=== PATIENT | male | born 1950 | race Caucasian/White ===

== ENCOUNTER 2016-07-28 15:44 | Emergency (ER) | payer MEDICARE, BC ==
--- NOTE | 2016-07-28 16:09 | ED ---
Abdominal Pain HPI - General Chief Complaint: Abdominal Pain Stated Complaint: LRQ PAIN, CONSTIPATION, RECTAL PAIN Time Seen by Provider: 07/28/16 16:02 Source: patient, RN notes reviewed Mode of arrival: EMS Limitations: no limitations - History of Present Illness Initial Comments: 66-year-old male presents to the emergency department with a chief complaint of constipation. Patient states he has not had a good bowel movement about 3 days now. Patient states he feels as if he has to copious unable to get out. Patient states that his last bowel movement was about 3 days ago but he has been feeling off and bowel movements the last few weeks. Patient does admit to a history of constipation and says he hasn't needed enemas before. Patient tried enema, and only had a small bowel movement. Patient states that he is having some lower abdominal pain with this as well. Patient denies any fever chills nausea vomiting. Patient denies any changes in urination. Patient states that he was concerned and he was having a lot of pain when he tried to the bowel movements without that he should be evaluated.Patient denies any recent fever, chills, shortness of breath, chest pain, back pain, nausea vomiting, numbness or tingling, dysuria or hematuria, diarrhea, headaches or visual changes, or any other current symptoms. - Related Data Home Medications Medication Instructions Recorded Confirmed Aspirin EC [Ecotrin] 81 mg PO DAILY 01/10/15 07/28/16 Cholecalciferol [Vitamin D3] 1,000 unit PO BID 01/10/15 07/28/16 Folic Acid 1 - 2 mg PO DAILY 01/10/15 07/28/16 Magnesium 250 mg PO DAILY 01/10/15 07/28/16 ALPRAZolam [Xanax] 0.25 mg PO DAILY PRN 07/12/15 07/28/16 Carvedilol [Coreg] 12.5 mg PO BID 07/12/15 07/28/16 Sildenafil Citrate [Viagra] 50 mg PO ONCE PRN 07/12/15 07/28/16 Esomeprazole Magnesium [NexIUM] 40 mg PO BID 08/20/15 07/28/16 Ranitidine HCl [Zantac] 150 mg PO BID 11/19/15 07/28/16 Krill/Om-3/Dha/Epa/Phospho/Ast 1 cap PO DAILY 11/22/15 07/28/16 [[place]-3 Krill Oil 300 mg Sfgl] Atorvastatin [Lipitor] 10 mg PO DAILY 07/28/16 07/28/16 Fexofenadine HCl [Beronica Allergy] 180 mg PO DAILY 07/28/16 07/28/16 Fluticasone Nasal [place] [Flonase 2 spr EA NOSTRIL DAILY PRN 07/28/16 07/28/16 Nasal [place]] Montelukast [Singulair] 10 mg PO HS 07/28/16 07/28/16 Vitamin B Complex 1 cap PO DAILY 07/28/16 07/28/16 Zinc 50 mg PO DAILY 07/28/16 07/28/16 Allergies Allergy/AdvReac Type Severity Reaction Status Date / Time chloroxine [From Capitrol] Allergy Itching Verified 07/28/16 16:29 Sulfa (Sulfonamide Allergy Rash/Hives Verified 07/28/16 16:29 Antibiotics) tamsulosin HCl [From Flomax] AdvReac low b/p Verified 07/28/16 16:29 Review of Systems ROS Statement: Those systems with pertinent positive or pertinent negative responses have been documented in the HPI. ROS Other: All systems not noted in ROS Statement are negative. Past Medical History Past Medical History: Coronary Artery Disease (CAD), GERD/Reflux, Hyperlipidemia , Hypertension, Myocardial Infarction (MD) Additional Past Medical History / Comment(s): having difficulty swallowing meat and recent intermittent burning sensation to tongue with recent tx of yeast infection, narrowing rt nares,diverticulitis Last Myocardial Infarction Date:: 2012 History of Any Multi-Drug Resistant Organisms: None Reported Past Surgical History: AICD, Heart Catheterization, Heart Catheterization With Stent, Orthopedic Surgery, Tonsillectomy Additional Past Surgical History / Comment(s): heart stents x2,EGD Past Anesthesia/Blood Transfusion Reactions: No Reported Reaction Date of Last Stent Placement:: 2012 Type of Cardiac Device: AICD Device Placement Date:: 2013 Past Psychological History: Anxiety Smoking Status: Former smoker Past Alcohol Use History: None Reported Additional Past Alcohol Use History / Comment(s): quit smoking approx Past Drug Use History: None Reported - Past Family History Mother Family Medical History: Congestive Heart Failure (CHF) Father Family Medical History: Cancer Additional Family Medical History / Comment(s): prostate Sister(s) Family Medical History: Cancer, CVA/TIA General Exam - General Exam Comments Initial Comments: General: The patient is awake and alert, in no distress, and does not appear acutely ill. Eye: Pupils are equal, round and reactive to light, extra-ocular movements are intact; there is normal conjunctiva bilaterally. No signs of icterus. Ears, nose, mouth and throat: There are moist mucous membranes. Neck: The neck is supple, there is no tenderness. Cardiovascular: There is a regular rate and rhythm. No murmur, rub or gallop is appreciated. Respiratory: Lungs are clear to auscultation, respirations are non-labored, breath sounds are equal. No wheezes, stridor, rales, or rhonchi. Gastrointestinal: Soft, non-distended, non-tender abdomen without masses or organomegaly noted. There is no rebound or guarding present. No CVA tenderness. Bowel sounds are unremarkable. Back: There is no tenderness to palpation in the midline. There is no obvious deformity. No rashes noted. Musculoskeletal: Normal ROM, no tenderness, There is no pedal edema. There is no calf tenderness or swelling. Sensation intact. Pulses equal bilaterally 2+. Neurological: CN II-XII intact, There are no obvious motor or sensory deficits. Coordination appears grossly intact. Speech is normal. Skin: Skin is warm and dry and no rashes or lesions are noted. Psychiatric: Cooperative, appropriate mood & affect, normal judgment. Limitations: no limitations Rectal exam: Present: normal inspection Course Vital Signs 07/28/16 15:46 Temperature 98.0 F Pulse Rate 79 Respiratory 20 Rate Blood Pressure 122/77 O2 Sat by Pulse 100 Oximetry Medical Decision Making - Medical Decision Making 66-year-old male presents emergency Department chief complaint of constipation. At this time x-rays reviewed that showed increased stool in the rectum. Patient went enema did have good results and states that he is back to normal he feels great. This time we discussed follow-up and return parameters. Patient stated he understood and all questions were answered. He'll be discharged. - Radiology Data Radiology results: report reviewed, image reviewed Disposition Clinical Impression: Constipation Disposition: HOME SELF-CARE Condition: Stable Instructions: Constipation (ED) Additional Instructions: Please use medication as discussed. Please follow up with family doctor if symptoms have not improved over the next two days. Please return to the emergency room if your symptoms increase or worsen or for any other concerns. Referrals: Vega Davies DO [Primary Care Provider] - 1-2 days Time of Disposition: 17:20
--- NOTE | 2016-07-28 16:21 | XR ---
EXAMINATION TYPE: XR abdomen 2V DATE OF EXAM: 07/28/2016 4:16 PM CLINICAL HISTORY: Lower abdominal and rectal pain. History of diverticulitis TECHNIQUE: Supine and upright views of the abdomen are obtained COMPARISON: Abdominal x-ray November 22, 2015 FINDINGS: Scattered gas is seen in non-distended small bowel loops. Gas and fecal material is seen in non-distended colon. The amount of fecal material is slightly prominent in the rectum. No pneumope ritoneum or suspicious calcification is seen. There is scoliotic curvature in the lower lumbar spine redemonstrated. Is partial visualization of pacemaker/defibrillator lead. There is coronary stent not ed in the left circumflex distribution. IMPRESSION: Overall nonspecific likely nonobstructive bowel gas pattern.
[2016-07-28] MEDS ORDERED: MAGNESIUM CITRATE 296 ML BOTTLE PO ONE (17:20)
[2016-07-28 17:57] VITALS: BP 126/72; PULSE 80; RESP 18; TEMP 97.4
== END 2016-07-28 18:00 | disposition home or self-care (01) ==
LOC: EC 15:44
DX: K59.00 Constipation, unspecified (principal); I10 Essential (primary) hypertension; F41.9 Anxiety disorder, unspecified; K21.9 Gastro-esophageal reflux disease without esophagitis; I25.2 Old myocardial infarction; I25.10 Atherosclerotic heart disease of native coronary artery without angina pectoris; E78.5 Hyperlipidemia, unspecified; Z95.810 Presence of automatic (implantable) cardiac defibrillator; Z95.5 Presence of coronary angioplasty implant and graft; Z87.891 Personal history of nicotine dependence; Z79.82 Long term (current) use of aspirin; Z79.899 Other long term (current) drug therapy; Z79.51 Long term (current) use of inhaled steroids; Z88.8 Allergy status to other drugs, medicaments and biological substances; Z88.2 Allergy status to sulfonamides
CPT/HCPCS: 74020; 99284

== ENCOUNTER 2016-10-26 10:09 | Day surgery (SDC) | payer MEDICARE, BC ==
[2016-10-23 16:05] VITALS: BMI 22.5
[~2016-10-26 10:09] MED LIST: LACTATED RINGERS 1,000 ML IV SCH
[2016-10-26 11:37] VITALS: TEMP 98.1
[2016-10-26] MEDS ORDERED: LIDOCAINE 1% 20 ML VIAL (10MG/ML) FOR IV START INTRADERMA ONE (11:40)
[2016-10-26] MEDS ORDERED: LIDOCAINE 1% INJ 10MG/ML (20 ML MDV) ONE (12:35)
[2016-10-26] MEDS ORDERED: PROPOFOL 10 MG/ML 20 ML VIAL IV ONE ×2 (12:35)
[2016-10-26 13:21] VITALS: RESP 16
--- NOTE | 2016-10-26 13:28 | P.PCN ---
Date of Procedure: 10/26/16 Procedure(s) Performed: Procedures: 1. Esophagogastroduodenoscopy and biopsy. 2. Total colonoscopy. Preoperative diagnosis: Chronic reflux symptoms and change in bowel habits. Postoperative diagnosis: 1. Small sliding hiatal hernia and LA grade 2 distal esophagitis. 2. Mild gastritis. 3. Colonoscopy reveals diverticulosis with no evidence of acute diverticulitis, strictures, polyps or cancer. Preparation: HalfLytely prep. Sedation: Was provided by anesthesia. Brief clinical history: The patient is 66-year-old male who I have evaluated in the office last month for various GI complaints. He reported feeling of incomplete evacuation for 3-4 months and had complaints of excessive gas especially after dinner. He gave history of hiatal hernia and chronic reflux for which he is on Zantac daily and Nexium periodically. He also gave history of burning in his tongue since 2014 after he had a reaction to sulfa drugs, now improved, but recurs when he is on antibiotics. His last upper endoscopy and colonoscopy was around 5 years ago. This evaluation is to assess for complicated reflux disease, neoplasia or other pathology. Procedure: With the patient on his left lateral decubitus position and after informed consent and adequate sedation, I passed the Olympus-GIF 160 video upper endoscope through the cricopharyngeus down the esophagus. GE junction was around 40 cm from the incisors and there was a small sliding hiatal hernia and couple short linear erosions terminating at the level of the GE junction but no strictures or Van's esophagus. No ulcers. The endoscope was then passed into the stomach which was insufflated with air and inspected in detail including the retroflex view in the cardia. There was some mottling and erythema in the antrum but no ulcers or erosions. Pyloric channel, duodenal bulb, post bulbar area and descending duodenum appeared essentially within normal limits. Because of his symptoms, I obtained multiple biopsies from the duodenum antrum and esophagus before the endoscope was withdrawn and then I proceeded with the colonoscopy. Perianal area did not show any fissures or fistulas. There were no masses felt on digital rectal examination. The Olympus CFQ 160L video colonoscope was then inserted in the rectum in the usual fashion and advanced to the cecum. There were multiple diverticular orifices seen scattered along the length of the bowel , mostly small in size, with no evidence of acute diverticulitis or strictures. No polyps, tumors or other pathology noted. I retroflexed endoscope in the rectum before the endoscope was withdrawn. The patient tolerated the procedure well. Plan: The patient was reassured. Will await biopsy results. Discussed dietary measures. Further plans will be made based on his course and biopsy results. I will keep you updated on his progress.
[2016-10-26 13:46] VITALS: BP 122/71; PULSE 81
== END 2016-10-26 14:30 | disposition home or self-care (01) ==
LOC: ORWHC2ENDO 10:09
DX: K57.30 Diverticulosis of large intestine without perforation or abscess without bleeding (principal); K21.0 Gastro-esophageal reflux disease with esophagitis; K29.50 Unspecified chronic gastritis without bleeding; K28.9 Gastrojejunal ulcer, unspecified as acute or chronic, without hemorrhage or perforation; K44.9 Diaphragmatic hernia without obstruction or gangrene; I25.10 Atherosclerotic heart disease of native coronary artery without angina pectoris; I10 Essential (primary) hypertension; E78.5 Hyperlipidemia, unspecified; Z95.5 Presence of coronary angioplasty implant and graft; Z95.810 Presence of automatic (implantable) cardiac defibrillator; Z88.2 Allergy status to sulfonamides; Z88.8 Allergy status to other drugs, medicaments and biological substances; I25.2 Old myocardial infarction; Z79.899 Other long term (current) drug therapy
CPT/HCPCS: 88305; 88342; 45378; 43239; J2001; J2704

== ENCOUNTER → 2016-11-23 | Outpatient (CLI) | payer MEDICARE, BC ==
[2016-11-23 17:20] LABS: Rheumatoid Factor, Qnt <9 IU/mL (<12)
[2016-11-23 17:21] LABS: Uric Acid 4.4 mg/dL (3.5-8.5)
== END | disposition home or self-care (01) ==
LOC: LABWHC1 16:24
PROVIDERS: ATTEND Internal Medicine Critical Care Medicine
DX: M19.90 Unspecified osteoarthritis, unspecified site (principal); M10.9 Gout, unspecified; R10.9 Unspecified abdominal pain; Z12.5 Encounter for screening for malignant neoplasm of prostate
CPT/HCPCS: 85652; 84550; 86140; 86431; 86038; 36415; G0103

== ENCOUNTER → 2017-03-15 | Outpatient (CLI) | payer MEDICARE, BC ==
[2017-03-15 19:22] LABS: Cyclic Citrull Pep IgG Unit <0.5 U/mL; Cyclic Citrullinated Pep IgG NEGATIVE (NEGATIVE); RNP AB Interpretation NEGATIVE (NEGATIVE)
== END | disposition home or self-care (01) ==
LOC: LABWHC1 13:15
PROVIDERS: ATTEND Psychiatry & Neurology Pain Medicine
DX: M79.1 Myalgia (principal)
CPT/HCPCS: 36415; 85652; 86140; 86200; 86235

== ENCOUNTER → 2017-03-23 | Outpatient (CLI) | payer MEDICARE, BC ==
[2017-03-23 09:01] LABS: Blood Urea Nitrogen 12 mg/dL (9-20); Non-African American GFR(MDRD) >60 (>60 ml/min/1.73 sqM)
--- NOTE | 2017-03-23 10:24 | CT ---
EXAMINATION TYPE: CT brain wo/w con DATE OF EXAM: 03/23/2017 COMPARISON: NONE HISTORY: Weakness and blurred vision CT DLP: 5.4 mGycm Automated exposure control for dose reduction was used. CONTRAST: CT scan of the head is performed without and with IV Contrast, patient injected with 100 mL of Omnipa que 300. FINDINGS: Noncontrast images show no acute intracranial hemorrhage. There is no abnormal enhancing mass or midl ine shift identified. Patchy bilateral basal ganglia calcifications are seen. Some low-attenuation pe riventricular white matter is felt present. Dominant left vertebral artery is incidentally noted. The re is ventricular and sulcal prominence consistent with mild to moderate diffuse age-related cerebral atrophy. The globes are intact and the visualized sinuses are clear. IMPRESSION: Mild to moderate diffuse cerebral atrophy and suspected mild chronic small vessel ischemic change wit hout abnormal enhancing mass identified.
--- NOTE | 2017-03-23 10:55 | CT ---
EXAMINATION TYPE: CT lumbar spine wo con DATE OF EXAM: 03/23/2017 10:06 AM COMPARISON: CT abdomen and pelvis November 25, 2011. HISTORY: Lumbago per order. Low back pain with feet leg pain and weakness. CT DLP: 387.4 mGycm Automated exposure control for dose reduction was used. Findings: There is redemonstration 5 lumbar type vertebra. There is redemonstration of levoconvex sco liosis centered at lumbosacral junction. Spine is straightened on sagittal images. There is advanced disc space narrowing with endplate sclerosis and moderate anterior spurring at L5-S1 level redemonstr ated. Vertebral body heights and disc space heights above this level are within normal limits with ex ception of moderate disc space narrowing at T12-L1 level. There is mild to minimal multilevel anterio r and lateral spurring seen. Posterior disc herniation L5-S1 level is present on sagittal images. Axial images show T12-L1, L1-L2, L2-L3, and L3-L4 levels to appear within normal limits. Axial images at the L4-L5 level show broad-based left lateral/foraminal disc protrusion on axial imag e 52. There is mild facet degenerative changes seen bilaterally with ligamentum flavum hypertrophy mi ldly effacing the posterior lateral thecal sac. Right-sided neural foramen is patent. There is mild l eft-sided neural foraminal narrowing seen along anterior inferior aspect. Axial images at L5-S1 level show advanced disc space narrowing with posterior left paracentral spur d isc complex minimally effacing anterior thecal sac on axial image 61. Spur disc complex causes advanc ed right-sided neural foraminal narrowing and moderate left-sided neural foraminal narrowing with enc roachment on right L5 nerve likely present on sagittal images. Left L5 nerve is patent seen best on c oronal image 31. There is mild calcified plaque of aorta extending into pelvic branch vessels. IMPRESSION: Levoconvex scoliosis centered at lumbosacral junction. Advanced degenerative changes L5-S 1 level are seen. There is marginal spurring effacing right L5 nerve at this level. Further details a re noted as discussed above.
== END | disposition home or self-care (01) ==
LOC: RADCTMAIN 08:05
PROVIDERS: ATTEND Internal Medicine Critical Care Medicine
DX: I67.82 Cerebral ischemia (principal); G31.9 Degenerative disease of nervous system, unspecified
CPT/HCPCS: 82565; 84520; 72131; 70470; 36415; Q9967

== ENCOUNTER → 2017-04-24 | Outpatient (CLI) | payer MEDICARE, BC ==
--- NOTE | 2017-04-24 11:37 | US ---
EXAMINATION TYPE: US abdomen complete DATE OF EXAM: 04/24/2017 COMPARISON: CT 2011; US 2011 CLINICAL HISTORY: K30 Dyspepsia. HX of GERD; sinus drainage; allergies; right lateral abd pain interm ittently EXAM MEASUREMENTS: Liver Length: 13.7 cm Gallbladder Wall: 0.2 cm CBD: 0.5 cm Spleen: 12.4 cm Right Kidney: 10.2 x 5.4 x 4.3 cm Left Kidney: 9.0 x 4.3 x 4.0 cm Pancreas: wnl Liver: No evidence of focal mass. Left lobe somewhat diminutive relative to right lobe. Gallbladder: wnl Evidence for sonographic Navas's sign: No CBD: wnl Spleen: wnl Right Kidney: upper pole parallel vessel wall calcification is noted; small calcification imaged at lower pole = 0.2 x 0.2 x 0.2cm; multiple midpole small microcalcifications Left Kidney: mid sinus punctate hyperechoic foci Upper IVC: wnl Abd Aorta: wnl IMPRESSION: 1. Findings are suggestive of tiny bilateral renal calculi with no evidence of obstruction. Consider CT scan follow-up.
== END | disposition home or self-care (01) ==
LOC: RADUSWWP 10:32
DX: K30 Functional dyspepsia (principal)
CPT/HCPCS: 76700

== ENCOUNTER 2017-12-01 20:28 | Emergency (ER) | payer MEDICARE, BC ==
[2017-12-01] MEDS ORDERED: SODIUM CHLORIDE 0.9% 1,000 ML IV STA (20:47)
[2017-12-01] MEDS ORDERED: RX INFO: IV CONTRAST WAS GIVEN 1 EACH MISC MISCELLANE PRN (20:47)
--- NOTE | 2017-12-01 20:51 | ED ---
Abdominal Pain HPI - General Chief Complaint: Abdominal Pain Stated Complaint: Abd pain Time Seen by Provider: 12/01/17 20:39 Source: patient, RN notes reviewed Mode of arrival: ambulatory Limitations: no limitations - History of Present Illness Initial Comments: This is a 67-year-old male who presents to the emergency department with chief complaint of abdominal pain. Patient states that he developed acute onset of abdominal pain last night at about midnight. He describes the pain as throbbing and intermittent and that it is made worse with sitting and better with standing up. He states that at first the abdominal pain was generalized but is now localized to the right lower quadrant with radiation to his low back. He denies fevers but admits to associated chills and nausea. Denies vomiting, diarrhea or constipation. He states his last bowel movement was this morning and it was normal. Denies blood in his urine or stool. Denies chest pain or shortness of breath. - Related Data Home Medications Medication Instructions Recorded Confirmed Aspirin EC [Ecotrin] 81 mg PO DAILY 01/10/15 07/08/17 Cholecalciferol [Vitamin D3] 2,000 unit PO DAILY 01/10/15 07/08/17 Folic Acid 1 - 2 mg PO DAILY 01/10/15 07/08/17 Magnesium 250 mg PO DAILY 01/10/15 07/08/17 ALPRAZolam [Xanax] 0.25 mg PO DAILY PRN 07/12/15 07/08/17 Carvedilol [Coreg] 12.5 mg PO BID 07/12/15 07/08/17 Sildenafil Citrate [Viagra] 50 mg PO DAILY PRN 07/12/15 07/08/17 Esomeprazole Magnesium [NexIUM] 40 mg PO BID PRN 08/20/15 07/08/17 Ranitidine HCl [Zantac] 150 mg PO BID PRN 11/19/15 07/08/17 Krill/Om-3/Dha/Epa/Phospho/Ast 1 cap PO DAILY 11/22/15 07/08/17 [[place]-3 Krill Oil 300 mg Sfgl] Fexofenadine HCl [Beronica Allergy] 180 mg PO DAILY 07/28/16 07/08/17 Fluticasone Nasal [place] [Flonase 2 spr EA NOSTRIL DAILY PRN 07/28/16 07/08/17 Nasal [place]] Vitamin B Complex 1 cap PO DAILY 07/28/16 07/08/17 Zinc 50 mg PO DAILY 07/28/16 07/08/17 Atorvastatin [Lipitor] 80 mg PO HS 10/23/16 07/08/17 L.acidoph,Paracasei, B.lactis 1 cap PO DAILY 10/23/16 07/08/17 [Probiotic] Lisinopril [Zestril] 10 mg PO DAILY 10/23/16 07/08/17 Olopatadine HCl [[place]] 1 drop BOTH EYES DAILY PRN 07/08/17 07/08/17 Ubidecarenone [Co Q-10] 100 mg PO BID 07/08/17 07/08/17 Previous Rx's Medication Instructions Recorded Azithromycin [Zithromax Z-pack] 0 mg PO DIRECTED #6 tab 07/08/17 Levofloxacin [Levaquin] 750 mg PO DAILY 7 Days #7 tab 12/01/17 metroNIDAZOLE [Flagyl] 500 mg PO Q8HR #21 tab 12/01/17 Allergies Allergy/AdvReac Type Severity Reaction Status Date / Time captopril Allergy Rash/Hives Verified 12/01/17 20:36 Sulfa (Sulfonamide Allergy Rash/Hives Verified 12/01/17 20:36 Antibiotics) tamsulosin HCl [From Flomax] AdvReac low b/p Verified 12/01/17 20:36 environmental allegies Allergy Unknown Uncoded 12/01/17 20:36 Review of Systems ROS Statement: Those systems with pertinent positive or pertinent negative responses have been documented in the HPI. ROS Other: All systems not noted in ROS Statement are negative. Past Medical History Past Medical History: Coronary Artery Disease (CAD), GERD/Reflux, Myocardial Infarction ([place]), Prostate Disorder Additional Past Medical History / Comment(s): hiatal hernia, diverticulitis, having difficulty swallowing meat and recent intermittent burning sensation to tongue, diverticulitis, [place] x2, bronchitis, enlarged prostate Last Myocardial Infarction Date:: 2012 History of Any Multi-Drug Resistant Organisms: None Reported Past Surgical History: AICD, Heart Catheterization, Heart Catheterization With Stent, Orthopedic Surgery, Tonsillectomy Additional Past Surgical History / Comment(s): heart stents x2, EGD, colonoscopy , left knee arthroscopy x 2, rt arm bicep tendon surgery Past Anesthesia/Blood Transfusion Reactions: No Reported Reaction Date of Last Stent Placement:: 2012 Type of Cardiac Device: AICD Device Placement Date:: 07/2013 Past Psychological History: Anxiety Smoking Status: Former smoker - Past Family History Mother Family Medical History: Congestive Heart Failure (CHF) Father Family Medical History: Cancer Additional Family Medical History / Comment(s): prostate Sister(s) Family Medical History: Cancer General Exam - General Exam Comments Initial Comments: General: Awake and alert, well-developed; in no apparent distress. is at bedside. HEENT: Head atraumatic, normocephalic. Pupils are equal, round and reactive to light. Extraocular movements intact. Oropharynx moist without erythema or exudate. Neck: Supple. Normal ROM. Cardiovascular: Regular rate and rhythm. No murmurs, rubs or gallops. Chest symmetrical. Respiratory: Lungs clear to auscultation bilaterally. No wheezes, rales or rhonchi. Normal respiratory effort with no use of accessory muscles. Abdomen: Soft, non-distended. Tenderness on palpation of right lower quadrant with guarding. No rigidity or rebound. Normal bowel sounds in all 4 quadrants. No CVA tenderness bilaterally. Musculoskeletal: Normal ROM, no tenderness bilateral upper and lower extremities. Skin: [place], warm and dry without rashes or lesions. Neurological: Alert and oriented x3. CN II-XII grossly intact. Speech is fluent and answers are appropriate. No focal neuro deficits. Psychiatric: Normal mood and affect. No overt signs of depression or anxiety noted. Limitations: no limitations Course Vital Signs 12/01/17 20:33 Temperature 98.5 F Pulse Rate 94 Respiratory 16 Rate Blood Pressure 153/82 O2 Sat by Pulse 100 Oximetry Medical Decision Making - Medical Decision Making This is a 67-year-old male who presents to the emergency department with chief complaint of right lower quadrant abdominal pain. Pain began last night as a generalized abdominal pain but is now in the right lower quadrant with radiation to low back. CBC, CMP and UA were unremarkable. Computed tomography scan of the abdomen and pelvis with IV contrast revealed evidence for diverticulitis. No evidence for abscess, perforation or free fluid. Findings were discussed with patient who does state that he has had diverticulitis twice in the past. Patient will be given first doses of Levaquin and Flagyl here. He will be discharged home with remainder. Vital signs are stable and patient is in no acute distress. He is in agreement with plan and voices understanding. All questions answered. - Lab Data Result diagrams: 12/01/17 20:55 12/01/17 20:55 Lab Results 12/01/17 12/01/17 12/01/17 Range/Units 20:55 20:55 20:55 WBC 9.1 (3.8-10.6) k/uL RBC 4.44 (4.30-5.90) m/uL Hgb 14.3 (13.0-17.5) gm/dL Hct 39.4 (39.0-53.0) % MCV 88.8 (80.0-100.0) fL MCH 32.3 (25.0-35.0) pg MCHC 36.3 (31.0-37.0) g/dL RDW 14.2 (11.5-15.5) % Plt Count 222 (150-450) k/uL Neutrophils % 82 % Lymphocytes % 9 % Monocytes % 6 % Eosinophils % 2 % Basophils % 0 % Neutrophils # 7.5 (1.3-7.7) k/uL Lymphocytes # 0.8 L (1.0-4.8) k/uL Monocytes # 0.5 (0-1.0) k/uL Eosinophils # 0.1 (0-0.7) k/uL Basophils # 0.0 (0-0.2) k/uL Hyperchromasia Slight Sodium 142 (137-145) mmol/L Potassium 3.9 (3.5-5.1) mmol/L Chloride 104 (98-107) mmol/L Carbon Dioxide 26 (22-30) mmol/L Anion Gap 12 mmol/L BUN 12 (9-20) mg/dL Creatinine 0.80 (0.66-1.25) mg/dL Est GFR (CKD-EPI)AfAm >90 (>60 ml/min/1.73 sqM) Est GFR (CKD-EPI)NonAf >90 (>60 ml/min/1.73 sqM) Glucose 82 (74-99) mg/dL Calcium 9.2 (8.4-10.2) mg/dL Total Bilirubin 2.1 H (0.2-1.3) mg/dL AST 30 (17-59) U/L ALT 45 (21-72) U/L Alkaline Phosphatase 98 (38-126) U/L Total Protein 5.9 L (6.3-8.2) g/dL Albumin 3.9 (3.5-5.0) g/dL Amylase 50 (30-110) U/L Lipase 165 (23-300) U/L Urine Color Yellow Urine Appearance Clear (Clear) Urine pH 6.5 (5.0-8.0) Ur Specific [place] 1.006 (1.001-1.035) Urine Protein Negative (Negative) Urine Glucose (UA) Negative (Negative) Urine Ketones Negative (Negative) Urine Blood Negative (Negative) Urine Nitrite Negative (Negative) Urine Bilirubin Negative (Negative) Urine Urobilinogen <2.0 (<2.0) mg/dL Ur Leukocyte Esterase Negative (Negative) - Radiology Data Radiology results: report reviewed CT abdomen and pelvis with contrast impression: Inflammatory changes around the distal sigmoid colon suggestive of possible diverticulitis given widespread diverticulosis. No evidence for abscess. No evidence of perforation. No evidence for free fluid. Disposition Clinical Impression: Diverticulitis Disposition: HOME SELF-CARE Condition: Good Instructions: Diverticulitis (ED), Diverticulitis Diet (ED) Additional Instructions: Please take medications as prescribed. Please follow up with primary care provider within 1-2 days. Return to emergency department if symptoms should worsen or any concerns arise. Prescriptions: Levofloxacin [Levaquin] 750 mg PO DAILY 7 Days #7 tab metroNIDAZOLE [Flagyl] 500 mg PO Q8HR #21 tab Is patient prescribed a controlled substance at d/c from ED?: No Referrals: Vega Davies DO [Primary Care Provider] - 1-2 days Time of Disposition: 22:14
[2017-12-01 21:07] LABS: Appearance,Urine Clear (Clear); Basophils % (A) 0 %; Bilirubin,Urine Negative (Negative); Blood,Urine Negative (Negative); Color,Urine Yellow; Eosinophils # (A) 0.1 k/uL (0-0.7); Eosinophils % (A) 2 %; Glucose,Urine (UA) Negative (Negative); HCT 39.4 % (39.0-53.0); HGB 14.3 gm/dL (13.0-17.5); Hyperchromasia Slight; Ketones,Urine Negative (Negative); Leukocyte Esterase,Urine Negative (Negative); Lymphocytes # (A) 0.8 k/uL (1.0-4.8); Lymphocytes % (A) 9 %; MCH 32.3 pg (25.0-35.0); MCHC 36.3 g/dL (31.0-37.0); MCV 88.8 fL (80.0-100.0); Mean Platelet Volume 6.7; Monocytes # (A) 0.5 k/uL (0-1.0); Monocytes % (A) 6 %; Neutrophils # (A) 7.5 k/uL (1.3-7.7); Neutrophils % (A) 82 %; Nitrite,Urine Negative (Negative); PH, Urine 6.5 (5.0-8.0); Platelet Count 222 k/uL (150-450); Protein,Urine Negative (Negative); RBC 4.44 m/uL (4.30-5.90); RDW 14.2 % (11.5-15.5); Specific Gravity,Urine 1.006 (1.001-1.035); Urobilinogen,Urine <2.0 mg/dL (<2.0); WBC 9.1 k/uL (3.8-10.6)
[2017-12-01] MEDS ORDERED: MORPHINE SULFATE 4 MG/ML SYRINGE IVP STA (21:08)
[2017-12-01 21:18] LABS: ALT 45 U/L (21-72); AST 30 U/L (17-59); Albumin 3.9 g/dL (3.5-5.0); Alkaline Phosphatase 98 U/L (38-126); Amylase 50 U/L (30-110); Anion Gap 12 mmol/L; Blood Urea Nitrogen 12 mg/dL (9-20); Calcium 9.2 mg/dL (8.4-10.2); Carbon Dioxide 26 mmol/L (22-30); Chloride 104 mmol/L (98-107); Glucose 82 mg/dL (74-99); Lipase 165 U/L (23-300); Potassium 3.9 mmol/L (3.5-5.1); Sodium 142 mmol/L (137-145); Total Bilirubin 2.1 mg/dL (0.2-1.3); Total Protein 5.9 g/dL (6.3-8.2)
--- NOTE | 2017-12-01 22:04 | CT ---
EXAM: CT Abdomen and Pelvis With Intravenous Contrast CLINICAL HISTORY: rlq abdominal pain TECHNIQUE: Axial computed tomography images of the abdomen and pelvis with intravenous contrast. CTDI is 17 mGy and DLP is 612.3 mGy-cm. This CT exam was performed using one or more of the following dose reduction techniques: automated exposure control, adjustment of the mA and/or kV according to patient size, and/or use of iterative reconstruction technique. COMPARISON: No relevant prior studies available. FINDINGS: Lung bases: Unremarkable. No mass. No consolidation. ABDOMEN: Liver: Unremarkable. No mass. Gallbladder and bile ducts: Unremarkable. No calcified stones. No ductal dilation. Pancreas: Unremarkable. No mass. No ductal dilation. Spleen: Unremarkable. No splenomegaly. Adrenals: Unremarkable. No mass. Kidneys and ureters: Unremarkable. No solid mass. No hydronephrosis. Stomach and bowel: Abnormal appearance of sigmoid colon with inflammatory changes and wall thickening. Findings could represent inflammatory process such as diverticulitis given the extensive diverticulosis present. The appendix is unremarkable. IMPRESSION: Inflammatory changes around the distal sigmoid colon suggestive of possible diverticulitis given widespread diverticulosis. No evidence for abscess. No evidence of perforation no evidence for free fluid.
[2017-12-01] MEDS ORDERED: metroNIDAZOLE 500 MG TAB PO STA (22:11)
[2017-12-01] MEDS ORDERED: LEVOFLOXACIN 750 MG TAB PO STA (22:12)
[2017-12-01 22:30] VITALS: BP 132/78; PULSE 89; RESP 15; TEMP 97.8
== END 2017-12-01 22:34 | disposition home or self-care (01) ==
LOC: EC 20:28
DX: K57.92 Diverticulitis of intestine, part unspecified, without perforation or abscess without bleeding (principal); I25.10 Atherosclerotic heart disease of native coronary artery without angina pectoris; I25.2 Old myocardial infarction; Z87.891 Personal history of nicotine dependence; Z95.5 Presence of coronary angioplasty implant and graft; Z95.810 Presence of automatic (implantable) cardiac defibrillator; Z95.818 Presence of other cardiac implants and grafts; Z79.82 Long term (current) use of aspirin; Z79.02 Long term (current) use of antithrombotics/antiplatelets; Z79.899 Other long term (current) drug therapy; Z88.8 Allergy status to other drugs, medicaments and biological substances; Z88.2 Allergy status to sulfonamides; Z91.048 Other nonmedicinal substance allergy status
CPT/HCPCS: 99284; 96374; 96361; 36415; 80053; 82150; 83690; 85025; 81003; 87086; 74177; J2270; Q9967

== ENCOUNTER → 2018-01-16 | Outpatient (CLI) | payer MEDICARE, BC ==
[2018-01-16 14:16] LABS: Basophils # (A) 0.1 k/uL (0-0.2); Basophils % (A) 1 %; Eosinophils # (A) 0.2 k/uL (0-0.7); Eosinophils % (A) 3 %; HCT 41.3 % (39.0-53.0); Lymphocytes % (A) 15 %; MCH 31.5 pg (25.0-35.0); MCHC 33.9 g/dL (31.0-37.0); MCV 92.8 fL (80.0-100.0); Mean Platelet Volume 6.5; Monocytes # (A) 0.5 k/uL (0-1.0); Monocytes % (A) 7 %; Neutrophils % (A) 72 %; Platelet Count 238 k/uL (150-450); RBC 4.45 m/uL (4.30-5.90); RDW 13.5 % (11.5-15.5); WBC 6.9 k/uL (3.8-10.6)
[2018-01-16 14:29] LABS: ALT 39 U/L (21-72); AST 30 U/L (17-59); Alkaline Phosphatase 71 U/L (38-126); Anion Gap 7 mmol/L; Bilirubin, Delta 0.1 mg/dL (0.0-0.2); Bilirubin,Unconjugated 2.3 mg/dL (0.0-1.1); Blood Urea Nitrogen 15 mg/dL (9-20); Calcium 9.1 mg/dL (8.4-10.2); Carbon Dioxide 29 mmol/L (22-30); Chloride 103 mmol/L (98-107); Glucose 91 mg/dL (74-99); Potassium 4.3 mmol/L (3.5-5.1); Sodium 139 mmol/L (137-145); Total Bilirubin 2.4 mg/dL (0.2-1.3); Total Protein 5.9 g/dL (6.3-8.2)
[2018-01-16 14:59] LABS: PSA Annual Screen 4.12 ng/mL (0.00-4.00)
[2018-01-16 20:26] LABS: Hemoglobin A1C 4.7 % (4.0-6.0)
== END | disposition home or self-care (01) ==
LOC: LABWHC1 12:58
PROVIDERS: ATTEND Internal Medicine Critical Care Medicine
DX: Z00.00 Encounter for general adult medical examination without abnormal findings (principal); E55.9 Vitamin D deficiency, unspecified; Z79.899 Other long term (current) drug therapy; Z12.5 Encounter for screening for malignant neoplasm of prostate
CPT/HCPCS: 84439; 84481; 80053; 82248; 84443; 85025; 82306; 83036; 36415; G0103

== ENCOUNTER → 2018-07-18 | Outpatient (CLI) | payer MEDICARE, BC | END | disposition home or self-care (01) | LOC: LABWHC1 13:06 | PROVIDERS: ATTEND Urology | DX: C61 Malignant neoplasm of prostate (principal) | CPT/HCPCS: 36415; 84153 ==

== ENCOUNTER → 2019-04-28 | Outpatient (CLI) | payer MEDICARE, BC ==
--- NOTE | 2019-04-29 04:56 | CT ---
EXAMINATION TYPE: CT cervical spine wo con DATE OF EXAM: 04/28/2019 COMPARISON: None HISTORY: 69-year-old male Cervicalgia. Complains of numbness in both upper arms, the RT arm he said h as numbness into first 2 digits TECHNIQUE: Contiguous axial scanning of the cervical spine without IV contrast. Coronal and sagittal reconstructions performed. CT DLP: 391.20 mGycm Automated exposure control for dose reduction was used. FINDINGS: There is asymmetric lobulated contour along the left vocal fold thickening correlated with direct ins pection. Refer to axial image 67. No craniocervical junction abnormality, predental space widening, or prevertebral soft tissue swellin g. Grade 1 anterolisthesis at C4-C5. Remaining alignment is maintained. Moderate to advanced disc/endplate degenerative change at C5-T2 levels with loss of disc height, endp late sclerosis and irregularity and discussed by complex formation. Multilevel hypertrophic facet and uncovertebral joint arthropathy, greatest on the right. Mild spinal canal stenosis at C4-C5. At C3-C4, there is moderate to severe right and mild left neuroforaminal stenosis. At C4-C5, severe right neuroforaminal stenosis. At C5-C6, moderate bilateral neuroforaminal stenosis. At C6-C7, moderate bilateral neuroforaminal stenosis. At C7-T1, moderate left neural foraminal stenosis. IMPRESSION: 1. MODERATE TO ADVANCED SPONDYLOTIC CHANGE WITH DEGENERATIVE DISC DISEASE GREATEST FROM C5-T2 LEVELS. 2. DEGENERATIVE GRADE 1 ANTEROLISTHESIS OF C4 OR C5. 3. HYPERTROPHIC FACET ARTHROPATHY IS GREATEST ON THE RIGHT. 4. MILD SPINAL CANAL STENOSIS AT C4-C5. 5. VARIABLE MODERATE NEUROFORAMINAL STENOSES THROUGHOUT THE CERVICAL SPINE, MORE MODERATE TO SEVERE O N THE RIGHT AT C3-C4 AND SEVERE ON THE RIGHT AND C4-C5.
== END | disposition home or self-care (01) ==
LOC: RADCTMAIN 16:28
PROVIDERS: ATTEND Psychiatry & Neurology Neurology
DX: M48.02 Spinal stenosis, cervical region (principal); M43.12 Spondylolisthesis, cervical region; M50.33 Other cervical disc degeneration, cervicothoracic region; M46.92 Unspecified inflammatory spondylopathy, cervical region
CPT/HCPCS: 72125

== ENCOUNTER 2019-05-05 12:31 | Emergency (ER) | payer MEDICARE, BC ==
[2019-05-05 12:44] VITALS: RESP 18
--- NOTE | 2019-05-05 14:38 | ED ---
Back Pain HPI - General Chief Complaint: Back Pain/Injury Stated Complaint: Hip pain Time Seen by Provider: 05/05/19 13:10 Source: patient Limitations: no limitations - History of Present Illness Initial Comments: Patient is a 69-year-old male, presenting to emergency Department with complaints of low back as well as left hip pain 3 days. Patient has history of chronic low back pain and states that comes and goes. His back pain is no more than usual. Patient was in the bathtub 3 days ago when he states he started having left hip pain. Patient denies any falls or trauma to the hip. Patient describes it as anterior hip/groin area and hurts with bending over as well as lifting his left leg. Patient states he feels like it might be his hip flexor. Patient denies any fever, chills, trouble with urination. Patient denies history of kidney stones. Patient has no other complaints at this time. Upon arrival to ER, vital signs are stable. - Related Data Home Medications Medication Instructions Recorded Confirmed Aspirin EC [Ecotrin] 81 mg PO DAILY@1400 01/10/15 05/05/19 Cholecalciferol [Vitamin D3] 1,000 unit PO DAILY 01/10/15 05/05/19 Magnesium 250 mg PO DAILY@1500 01/10/15 05/05/19 ALPRAZolam [Xanax] 0.125 - 0.25 mg PO DAILY PRN 07/12/15 05/05/19 Carvedilol [Coreg] 12.5 mg PO BID@1400,2100 07/12/15 05/05/19 Krill/Om-3/Dha/Epa/Phospho/Ast 1 cap PO DAILY 11/22/15 05/05/19 [[place]-3 Krill Oil 300 mg Sfgl] Fexofenadine HCl [Beronica Allergy] 180 mg PO DAILY 07/28/16 05/05/19 Fluticasone Nasal [place] [Flonase 1 - 2 spray EA NOSTRIL DAILY 07/28/16 05/05/19 Nasal [place]] Atorvastatin [Lipitor] 80 mg PO HS 10/23/16 05/05/19 L.acidoph,Paracasei, B.lactis 1 cap PO DAILY 10/23/16 05/05/19 [Probiotic] Lisinopril [Zestril] 10 mg PO DAILY 10/23/16 05/05/19 Olopatadine HCl [Pataday] 1 drop BOTH EYES DAILY PRN 07/08/17 05/05/19 Ubidecarenone [Co Q-10] 100 - 200 mg PO DAILY 07/08/17 05/05/19 Acetaminophen Tab [Tylenol Tab] 650 mg PO Q6H PRN 05/05/19 05/05/19 Folic Acid 0.8 - 1.2 mg PO DAILY 05/05/19 05/05/19 Omeprazole 40 mg PO DAILY PRN 05/05/19 05/05/19 Propylene Glycol/Peg 400/Pf 1 drop BOTH EYES DAILY 05/05/19 05/05/19 [Systane 0.3-0.4% Eye Drops] Sildenafil Citrate [Viagra] 50 mg PO ONCE PRN 05/05/19 05/05/19 Silodosin [Rapaflo] 8 mg PO DAILY PRN 05/05/19 05/05/19 Sodium Chloride [[place]] 1 - 2 spray EA NOSTRIL BID PRN 05/05/19 05/05/19 Vitamin B Complex W/Vitamin C 1 cap PO DAILY 05/05/19 05/05/19 Allergies Allergy/AdvReac Type Severity Reaction Status Date / Time captopril Allergy Rash/Hives Verified 05/05/19 14:19 Sulfa (Sulfonamide Allergy Rash/Hives Verified 05/05/19 14:19 Antibiotics) tamsulosin HCl [From Flomax] AdvReac low b/p Verified 05/05/19 14:19 environmental allegies Allergy Unknown Uncoded 05/05/19 12:42 Review of Systems ROS Statement: Those systems with pertinent positive or pertinent negative responses have been documented in the HPI. ROS Other: All systems not noted in ROS Statement are negative. Past Medical History Past Medical History: Coronary Artery Disease (CAD), GERD/Reflux, Myocardial Infarction ([place]), Prostate Disorder Additional Past Medical History / Comment(s): hiatal hernia, diverticulitis, having difficulty swallowing meat and recent intermittent burning sensation to tongue, diverticulitis, [place] x2, bronchitis, enlarged prostate possible ca of prostate Last Myocardial Infarction Date:: 2012 History of Any Multi-Drug Resistant Organisms: None Reported Past Surgical History: AICD, Heart Catheterization, Heart Catheterization With Stent, Orthopedic Surgery, Tonsillectomy Additional Past Surgical History / Comment(s): heart stents x2, EGD, colonoscopy, left knee arthroscopy x 2, rt arm bicep tendon surgery Past Anesthesia/Blood Transfusion Reactions: No Reported Reaction Date of Last Stent Placement:: 2012 Type of Cardiac Device: AICD Device Placement Date:: 07/2013 Past Psychological History: Anxiety Smoking Status: Former smoker Past Alcohol Use History: None Reported Past Drug Use History: None Reported - Past Family History Mother Family Medical History: Congestive Heart Failure (CHF) Father Family Medical History: Cancer Additional Family Medical History / Comment(s): prostate Sister(s) Family Medical History: Cancer General Exam - General Exam Comments Initial Comments: GENERAL: Well-appearing, well-nourished and in no acute distress. HEAD: Atraumatic, normocephalic. EYES: Pupils equal round and reactive to light, extraocular movements intact, sclera anicteric, conjunctiva are normal. ENT: Nares patent, oropharynx clear without exudates. Moist mucous membranes. NECK: Normal range of motion, supple without lymphadenopathy or JVD. LUNGS: Breath sounds clear to auscultation bilaterally and equal. No wheezes rales or rhonchi. HEART: Regular rate and rhythm without murmurs, rubs or gallops. ABDOMEN: Soft, nontender, normoactive bowel sounds. No guarding, no rebound. No masses appreciated. : Deferred EXTREMITIES: Mild pain with palpation of the left hip flexor. Full left hip range of motion with pain at the end range. No swelling or erythema. Normal range of motion, no pitting or edema. No clubbing or cyanosis. NEUROLOGICAL: Cranial nerves II through XII grossly intact. Normal speech, normal gait. PSYCH: Normal mood, normal affect. SKIN: Warm, Dry, normal turgor, no rashes or lesions noted. Limitations: no limitations Course Vital Signs 05/05/19 05/05/19 12:40 15:26 Temperature 97.9 F 97.0 F L Pulse Rate 67 59 L Respiratory 18 18 Rate Blood Pressure 146/89 135/77 O2 Sat by Pulse 99 97 Oximetry Medical Decision Making - Medical Decision Making Patient is 69-year-old male presenting with right hip flexor pain as well as chronic left low back pain. No trauma or falls. Patient denies fever, chills. Patient most likely is having a left hip flexor strain as well as an increase in his chronic low back pain. X-rays of the left hip reveal no acute fractures dislocations. UA is normal today. Patient will continue to use Tylenol for pain relief and will follow up with his PCP as needed. Patient is stable for discharge at this time. - Lab Data Lab Results 05/05/19 Range/Units 14:27 Urine Color Yellow Urine Appearance Clear (Clear) Urine pH 7.0 (5.0-8.0) Ur Specific [place] 1.009 (1.001-1.035) Urine Protein Negative (Negative) Urine Glucose (UA) Negative (Negative) Urine Ketones Negative (Negative) Urine Blood Negative (Negative) Urine Nitrite Negative (Negative) Urine Bilirubin Negative (Negative) Urine Urobilinogen <2.0 (<2.0) mg/dL Ur Leukocyte Esterase Trace H (Negative) Urine WBC 2 (0-5) /hpf Amorphous Sediment Rare H (None) /hpf Urine Mucus Occasional H (None) /hpf Disposition Clinical Impression: Chronic low back pain, Strain of flexor muscle of left hip, Left hip pain Disposition: HOME SELF-CARE Condition: Stable Instructions (If sedation given, give patient instructions): Hip Pain (ED) Additional Instructions: Please return to the Emergency Department if symptoms worsen or any other concerns. Use gentle stretching, Tylenol for pain relief. Use heat as tolerated. Follow- up with your PCP or orthopedist if symptoms do not improve within one to 2 weeks. Is patient prescribed a controlled substance at d/c from ED?: No Referrals: Vega Davies DO [Primary Care Provider] - 1-2 days
--- NOTE | 2019-05-05 14:49 | XR ---
EXAMINATION TYPE: XR Hip Complete LT DATE OF EXAM: 05/05/2019 CLINICAL HISTORY: Left hip and groin pain TECHNIQUE: AP and frogleg views of the left hip are obtained. COMPARISON: None. FINDINGS: There is no acute fracture/dislocation evident in the left hip. The joint space in the le ft hip appears aligned with mild femoral acetabular arthropathy and acetabular roof sclerosis. The ov erlying soft tissue appears unremarkable. IMPRESSION: There is no acute fracture or dislocation in the left hip. Mild femoral acetabular arthr opathy.
[2019-05-05 14:56] LABS: Amorphous Sediment,Urine Rare /hpf; Appearance,Urine Clear (Clear); Bilirubin,Urine Negative (Negative); Blood,Urine Negative (Negative); Color,Urine Yellow; Glucose,Urine (UA) Negative (Negative); Ketones,Urine Negative (Negative); Leukocyte Esterase,Urine Trace (Negative); Mucus,Urine Occasional /hpf; Nitrite,Urine Negative (Negative); Protein,Urine Negative (Negative); Specific Gravity,Urine 1.009 (1.001-1.035); Urobilinogen,Urine <2.0 mg/dL (<2.0)
[2019-05-05 15:27] VITALS: BP 135/77; PULSE 59; TEMP 97
== END 2019-05-05 15:27 | disposition home or self-care (01) ==
LOC: EC 12:31
DX: S76.012A Strain of muscle, fascia and tendon of left hip, initial encounter (principal); M54.5 Low back pain; G89.29 Other chronic pain; I25.10 Atherosclerotic heart disease of native coronary artery without angina pectoris; K21.9 Gastro-esophageal reflux disease without esophagitis; I25.2 Old myocardial infarction; N40.0 Benign prostatic hyperplasia without lower urinary tract symptoms; F41.9 Anxiety disorder, unspecified; Z87.19 Personal history of other diseases of the digestive system; Z87.891 Personal history of nicotine dependence; Z95.5 Presence of coronary angioplasty implant and graft; Z95.810 Presence of automatic (implantable) cardiac defibrillator; Z98.890 Other specified postprocedural states; Z79.82 Long term (current) use of aspirin; Z79.899 Other long term (current) drug therapy; Z88.2 Allergy status to sulfonamides; Z88.8 Allergy status to other drugs, medicaments and biological substances; X58.XXXA Exposure to other specified factors, initial encounter
CPT/HCPCS: 73502; 81001; 99283

== ENCOUNTER 2019-05-25 07:49 | Emergency (ER) | payer MEDICARE, BC ==
[2019-05-25 07:55] VITALS: RESP 18; TEMP 97.4
[2019-05-25] MEDS ORDERED: ONDANSETRON 4 MG/2 ML VIAL IVP STA (08:16)
[2019-05-25] MEDS ORDERED: SODIUM CHLORIDE 0.9% 500 ML 500 ML IV STA (08:16)
[2019-05-25] MEDS ORDERED: KETOROLAC 30 MG/ML 1 ML VIAL IVP STA (08:16)
[2019-05-25] MEDS ORDERED: MAG HYDROX/AL HYDROX/SIMETH 30 ML, HYOSCYAMINE ELIXIR 10 ML, LIDOCAINE VISCOUS 2% 10 ML PO STA ×3 (08:17)
--- NOTE | 2019-05-25 08:21 | ED ---
General Adult HPI - General Chief complaint: Abdominal Pain Stated complaint: Back and abd pain Time Seen by Provider: 05/25/19 07:55 Source: patient, RN notes reviewed Mode of arrival: ambulatory Limitations: no limitations - History of Present Illness Initial comments: This is a 69-year-old male with past medical history significant for gastric reflux [place] and scoliosis. Patient states yesterday after he rate leads started having some mid right-sided back pain. Patient states he also started having quite a bit of reflux and I continued throughout the night and he took Maalox and omeprazole and it did not help. Patient states sitting up definitely made it better than laying down. Patient states she was unable to sleep so since it wasn't getting better he decided come to the hospital. Patient states he is nauseous but had no vomiting or diarrhea. Patient denies any fever chills. Patient states she has slight epigastric abdominal pain. Patient denies any chest pain difficulty breathing or shortness of breath. Patient denies any headache patient denies numbness weakness per patient denies lightheadedness or dizziness. Patient denies any swelling to the extremities. Patient denies any drinking recently. - Related Data Home Medications Medication Instructions Recorded Confirmed Aspirin EC [Ecotrin] 81 mg PO DAILY@1400 01/10/15 05/05/19 Cholecalciferol [Vitamin D3] 1,000 unit PO DAILY 01/10/15 05/05/19 Magnesium 250 mg PO DAILY@1500 01/10/15 05/05/19 ALPRAZolam [Xanax] 0.125 - 0.25 mg PO DAILY PRN 07/12/15 05/05/19 Carvedilol [Coreg] 12.5 mg PO BID@1400,2100 07/12/15 05/05/19 Krill/Om-3/Dha/Epa/Phospho/Ast 1 cap PO DAILY 11/22/15 05/05/19 [[place]-3 Krill Oil 300 mg Sfgl] Fexofenadine HCl [Beronica Allergy] 180 mg PO DAILY 07/28/16 05/05/19 Fluticasone Nasal [place] [Flonase 1 - 2 spray EA NOSTRIL DAILY 07/28/16 05/05/19 Nasal [place]] Atorvastatin [Lipitor] 80 mg PO HS 10/23/16 05/05/19 L.acidoph,Paracasei, B.lactis 1 cap PO DAILY 10/23/16 05/05/19 [Probiotic] Lisinopril [Zestril] 10 mg PO DAILY 10/23/16 05/05/19 Olopatadine HCl [Pataday] 1 drop BOTH EYES DAILY PRN 07/08/17 05/05/19 Ubidecarenone [Co Q-10] 100 - 200 mg PO DAILY 07/08/17 05/05/19 Acetaminophen Tab [Tylenol Tab] 650 mg PO Q6H PRN 05/05/19 05/05/19 Folic Acid 0.8 - 1.2 mg PO DAILY 05/05/19 05/05/19 Omeprazole 40 mg PO DAILY PRN 05/05/19 05/05/19 Propylene Glycol/Peg 400/Pf 1 drop BOTH EYES DAILY 05/05/19 05/05/19 [Systane 0.3-0.4% Eye Drops] Sildenafil Citrate [Viagra] 50 mg PO ONCE PRN 05/05/19 05/05/19 Silodosin [Rapaflo] 8 mg PO DAILY PRN 05/05/19 05/05/19 Sodium Chloride [[place]] 1 - 2 spray EA NOSTRIL BID PRN 05/05/19 05/05/19 Vitamin B Complex W/Vitamin C 1 cap PO DAILY 05/05/19 05/05/19 Allergies Allergy/AdvReac Type Severity Reaction Status Date / Time captopril Allergy Rash/Hives Verified 05/25/19 07:55 Sulfa (Sulfonamide Allergy Rash/Hives Verified 05/25/19 07:55 Antibiotics) tamsulosin HCl [From Flomax] AdvReac low b/p Verified 05/25/19 07:55 environmental allegies Allergy Unknown Uncoded 05/05/19 12:42 Review of Systems ROS Statement: Those systems with pertinent positive or pertinent negative responses have been documented in the HPI. ROS Other: All systems not noted in ROS Statement are negative. Past Medical History Past Medical History: Coronary Artery Disease (CAD), GERD/Reflux, Myocardial Infarction ([place]), Prostate Disorder Additional Past Medical History / Comment(s): hiatal hernia, diverticulitis, having difficulty swallowing meat and recent intermittent burning sensation to tongue, diverticulitis, [place] x2, bronchitis, enlarged prostate possible ca of prostate Last Myocardial Infarction Date:: 2012 History of Any Multi-Drug Resistant Organisms: None Reported Past Surgical History: AICD, Heart Catheterization, Heart Catheterization With Stent, Orthopedic Surgery, Tonsillectomy Additional Past Surgical History / Comment(s): heart stents x2, EGD, colonoscopy, left knee arthroscopy x 2, rt arm bicep tendon surgery Past Anesthesia/Blood Transfusion Reactions: No Reported Reaction Date of Last Stent Placement:: 2012 Type of Cardiac Device: AICD Device Placement Date:: 07/2013 Past Psychological History: Anxiety Smoking Status: Former smoker Past Alcohol Use History: None Reported Past Drug Use History: None Reported - Past Family History Mother Family Medical History: Congestive Heart Failure (CHF) Father Family Medical History: Cancer Additional Family Medical History / Comment(s): prostate Sister(s) Family Medical History: Cancer General Exam - General Exam Comments Initial Comments: GENERAL: Patient is well-developed and well-nourished. Patient is nontoxic and well- hydrated and is in mild distress. ENT: Neck is soft and supple. No significant lymphadenopathy is noted. Neck has full range of motion without eliciting any pain. EYES: The sclera were anicteric and conjunctiva were pink and moist. Extraocular movements were intact and pupils were equal round and reactive to light. Eyelids were unremarkable. PULMONARY: Unlabored respirations. Good breath sounds bilaterally. No audible rales rho nchi or wheezing was noted. CARDIOVASCULAR: There is a regular rate and rhythm without any murmurs gallops or rubs. ABDOMEN: Slight abdominal pain in the epigastric region. No palpable organomegaly was noted. There is no palpable pulsatile mass. SKIN: Skin is clear with no lesions or rashes and otherwise unremarkable. NEUROLOGIC: Patient is alert and oriented x3. Cranial nerves II through XII are grossly intact. Motor and sensory are also intact. Normal speech, volume and content. Symmetrical smile. MUSCULOSKELETAL: Normal extremities with adequate strength and full range of motion. No lower extremity swelling or edema. No calf tenderness. LYMPHATICS: No significant lymphadenopathy is noted PSYCHIATRIC: Normal psychiatric evaluation. Limitations: no limitations Course Vital Signs 05/25/19 05/25/19 07:54 10:26 Temperature 97.4 F L Pulse Rate 89 57 L Respiratory 18 18 Rate Blood Pressure 147/90 122/72 O2 Sat by Pulse 98 99 Oximetry Medical Decision Making - Medical Decision Making EKG shows sinus bradycardia 50 bpm MT interval is on a 56 QRS is 98 QT interval is 432 QTC is 393. Patient's EKG shows no ST segment elevation or depression. Back into reevaluate the patient his lower back pain felt considerably better. I gave the patient GI cocktail and that did help his gastric reflux and epigastric abdominal discomfort. Patient also showed no acute abnormality. Patient was comfortable going home at this time and will follow-up with his primary medical care doctor for a slightly elevated lipase. - Lab Data Result diagrams: 05/25/19 08:40 05/25/19 08:40 Lab Results 05/25/19 05/25/19 05/25/19 Range/Units 08:40 08:40 09:10 WBC 13.0 H (3.8-10.6) k/uL RBC 4.48 (4.30-5.90) m/uL Hgb 14.3 (13.0-17.5) gm/dL Hct 40.1 (39.0-53.0) % MCV 89.6 (80.0-100.0) fL MCH 32.0 (25.0-35.0) pg MCHC 35.8 (31.0-37.0) g/dL RDW 13.3 (11.5-15.5) % Plt Count 313 (150-450) k/uL Neutrophils % 85 % Lymphocytes % 7 % Monocytes % 5 % Eosinophils % 1 % Basophils % 0 % Neutrophils # 11.1 H (1.3-7.7) k/uL Lymphocytes # 1.0 (1.0-4.8) k/uL Monocytes # 0.6 (0-1.0) k/uL Eosinophils # 0.1 (0-0.7) k/uL Basophils # 0.1 (0-0.2) k/uL Sodium 135 L (137-145) mmol/L Potassium 3.7 (3.5-5.1) mmol/L Chloride 101 (98-107) mmol/L Carbon Dioxide 26 (22-30) mmol/L Anion Gap 8 mmol/L BUN 13 (9-20) mg/dL Creatinine 0.73 (0.66-1.25) mg/dL Est GFR (CKD-EPI)AfAm >90 (>60 ml/min/1.73 sqM) Est GFR (CKD-EPI)NonAf >90 (>60 ml/min/1.73 sqM) Glucose 117 H (74-99) mg/dL Calcium 9.0 (8.4-10.2) mg/dL Total Bilirubin 1.3 (0.2-1.3) mg/dL AST 29 (17-59) U/L ALT 49 (21-72) U/L Alkaline Phosphatase 93 (38-126) U/L Total Protein 6.1 L (6.3-8.2) g/dL Albumin 3.7 (3.5-5.0) g/dL Amylase 74 (30-110) U/L Lipase 418 H (23-300) U/L Urine Color Yellow Urine Appearance Cloudy (Clear) Urine pH 7.0 (5.0-8.0) Ur Specific [place] 1.018 (1.001-1.035) Urine Protein Negative (Negative) Urine Glucose (UA) Negative (Negative) Urine Ketones Negative (Negative) Urine Blood Negative (Negative) Urine Nitrite Negative (Negative) Urine Bilirubin Negative (Negative) Urine Urobilinogen <2.0 (<2.0) mg/dL Ur Leukocyte Esterase Negative (Negative) Urine RBC 4 (0-5) /hpf Urine WBC 3 (0-5) /hpf Disposition Clinical Impression: Lumbar strain, GERD (gastroesophageal reflux disease), Elevated lipase Disposition: HOME SELF-CARE Condition: Good Instructions (If sedation given, give patient instructions): Gastroesophageal Reflux Disease (ED) Is patient prescribed a controlled substance at d/c from ED?: No Referrals: Vega Davies DO [Primary Care Provider] - 1-2 days Time of Disposition: 11:14
[2019-05-25 08:54] LABS: Basophils # (A) 0.1 k/uL (0-0.2); Basophils % (A) 0 %; Eosinophils # (A) 0.1 k/uL (0-0.7); Eosinophils % (A) 1 %; HCT 40.1 % (39.0-53.0); HGB 14.3 gm/dL (13.0-17.5); Lymphocytes % (A) 7 %; MCHC 35.8 g/dL (31.0-37.0); MCV 89.6 fL (80.0-100.0); Mean Platelet Volume 5.5; Monocytes # (A) 0.6 k/uL (0-1.0); Monocytes % (A) 5 %; Neutrophils # (A) 11.1 k/uL (1.3-7.7); Neutrophils % (A) 85 %; Platelet Count 313 k/uL (150-450); RBC 4.48 m/uL (4.30-5.90); RDW 13.3 % (11.5-15.5)
[2019-05-25 08:59] LABS: ALT 49 U/L (21-72); AST 29 U/L (17-59); African American GFR (CKD) >90 (>60 ml/min/1.73 sqM); Albumin 3.7 g/dL (3.5-5.0); Alkaline Phosphatase 93 U/L (38-126); Amylase 74 U/L (30-110); Anion Gap 8 mmol/L; Blood Urea Nitrogen 13 mg/dL (9-20); Carbon Dioxide 26 mmol/L (22-30); Chloride 101 mmol/L (98-107); Glucose 117 mg/dL (74-99); Potassium 3.7 mmol/L (3.5-5.1); Sodium 135 mmol/L (137-145); Total Bilirubin 1.3 mg/dL (0.2-1.3); Total Protein 6.1 g/dL (6.3-8.2)
[2019-05-25] MEDS ORDERED: DIAZEPAM 5 MG/ML 2 ML INJ IVP STA (09:29)
[2019-05-25 09:30] LABS: Appearance,Urine Cloudy (Clear); Bilirubin,Urine Negative (Negative); Blood,Urine Negative (Negative); Color,Urine Yellow; Glucose,Urine (UA) Negative (Negative); Ketones,Urine Negative (Negative); Leukocyte Esterase,Urine Negative (Negative); Nitrite,Urine Negative (Negative); Protein,Urine Negative (Negative); RBC,Urine 4 /hpf (0-5); Specific Gravity,Urine 1.018 (1.001-1.035); Urobilinogen,Urine <2.0 mg/dL (<2.0); WBC,Urine 3 /hpf (0-5)
[2019-05-25 10:28] VITALS: BP 122/72; PULSE 57
--- NOTE | 2019-05-25 11:06 | US ---
EXAMINATION TYPE: US gallbladder DATE OF EXAM: 05/25/2019 COMPARISON: Previous study dated 04/24/2017. CLINICAL HISTORY: Epigastric abdominal pain. EXAM MEASUREMENTS: Liver Length: 13.9 cm Gallbladder Wall: 0.2 cm CBD: 0.4 cm Right Kidney: 10.1 x 4.3 x 4.2 cm Pancreas: visualized portions wnl Liver: wnl Gallbladder: No stones seen Evidence for sonographic Navas's sign: No CBD: wnl Right Kidney: No hydronephrosis or masses seen Visualized portions of the pancreas are unremarkable. The liver is normal in size without biliary dilatation. The gallbladder is normal without evidence of cholelithiasis. The gallbladder wall measures 2.2 mm. T he distal common hepatic duct measures 4 mm. There is no sonographic Navas's sign. The right kidney is unremarkable. IMPRESSION: NORMAL RIGHT UPPER QUADRANT ULTRASOUND.
== END 2019-05-25 11:41 | disposition home or self-care (01) ==
LOC: EC 07:49
DX: K21.9 Gastro-esophageal reflux disease without esophagitis (principal); S39.012A Strain of muscle, fascia and tendon of lower back, initial encounter; R74.8 Abnormal levels of other serum enzymes; R00.1 Bradycardia, unspecified; I25.10 Atherosclerotic heart disease of native coronary artery without angina pectoris; I25.2 Old myocardial infarction; Z82.49 Family history of ischemic heart disease and other diseases of the circulatory system; Z87.891 Personal history of nicotine dependence; Z88.2 Allergy status to sulfonamides; Z88.8 Allergy status to other drugs, medicaments and biological substances; Z91.048 Other nonmedicinal substance allergy status; Z79.51 Long term (current) use of inhaled steroids; Z79.82 Long term (current) use of aspirin; Z79.899 Other long term (current) drug therapy; Z95.5 Presence of coronary angioplasty implant and graft; Z95.810 Presence of automatic (implantable) cardiac defibrillator; Z87.39 Personal history of other diseases of the musculoskeletal system and connective tissue; X58.XXXA Exposure to other specified factors, initial encounter; Z53.20 Procedure and treatment not carried out because of patient's decision for unspecified reasons
CPT/HCPCS: 36415; 93005; 80053; 82150; 83690; 85025; 81001; 76705; 99284; 96374; 96375; J2405; J1885

== ENCOUNTER → 2019-06-11 | Outpatient (CLI) | payer MEDICARE, BC ==
[2019-06-11 17:08] LABS: African American GFR (CKD) >90 (>60 ml/min/1.73 sqM); Blood Urea Nitrogen 13 mg/dL (9-20); Non-African American GFR(CKD) 88 (>60 ml/min/1.73 sqM)
--- NOTE | 2019-06-11 21:21 | CT ---
EXAMINATION TYPE: CT abdomen w con DATE OF EXAM: 06/11/2019 COMPARISON: 12/01/2017 HISTORY: 69-year-old male pancreatitis, Elevated lipase, abdominal pain. History of GERD. TECHNIQUE: Contiguous axial scanning of the abdomen following administration of 100 ml Isovue 300 IV contrast. Delayed images through the kidneys and coronal/sagittal reconstructions performed. CT DLP: 372.8 mGycm Automated exposure control for dose reduction was used. FINDINGS: Right ventricular AICD lead. Heart normal size without pericardial effusion. Dependent atelectasis in the lungs. Liver normal size. No focal lesion within the liver. Portal venous system is patent. No biliary ducta l dilatation. Gallbladder, adrenal glands, and spleen appear within normal limits. No overt inflammation or altered enhancement of the pancreas is identified. No peripancreatic or intr apancreatic fluid collection. No dilated small bowel, free fluid, or free air. Prominent urinary bladder distention seen at the right lower quadrant. Occasional left-sided colonic diverticulosis with mild to moderate stool. No mesenteric or retroperitoneal lymphadenopathy identified. Duplicated infrarenal IVC. The pelvis is not imaged. S-shaped scoliosis. Severe degenerative disc disease L5-S1. IMPRESSION: 1. NO CT EVIDENCE FOR ACUTE PANCREATITIS. NOTE THAT MILD ACUTE PANCREATITIS MAY NOT BE APPARENT ON CT . NO PERIPANCREATIC OR INTRAPANCREATIC FLUID COLLECTIONS. 2. OCCASIONAL LEFT-SIDED COLONIC DIVERTICULOSIS. [id number] STOOL. 3. PROMINENT URINARY BLADDER DISTENTION WITH THE DOME SEEN ALONG THE RIGHT LOWER QUADRANT. CORRELATE TO ENSURE THAT THIS REPRESENTS VOLUNTARY RETENTION. EXAM OF THE ABDOMEN ONLY. 4. INCIDENTAL DUPLICATED INFRARENAL IVC.
== END | disposition home or self-care (01) ==
LOC: RADCTMAIN 16:21
PROVIDERS: ATTEND Internal Medicine Critical Care Medicine
DX: K85.90 Acute pancreatitis without necrosis or infection, unspecified (principal); K57.30 Diverticulosis of large intestine without perforation or abscess without bleeding; N32.89 Other specified disorders of bladder
CPT/HCPCS: 82565; 84520; 74160; 36415; Q9967 ×2

== ENCOUNTER → 2019-08-18 | Outpatient (CLI) | payer MEDICARE | END | disposition home or self-care (01) | LOC: LABWHC1 15:38 | PROVIDERS: ATTEND Internal Medicine Critical Care Medicine | DX: Z12.5 Encounter for screening for malignant neoplasm of prostate (principal) | CPT/HCPCS: 36415; G0103 ==

== ENCOUNTER → 2019-12-09 | Outpatient (CLI) | payer MEDICARE | END | disposition home or self-care (01) | LOC: LABWHC1 12:15 | PROVIDERS: ATTEND Urology | DX: R97.20 Elevated prostate specific antigen [PSA] (principal) | CPT/HCPCS: 36415; 84153 ==

== ENCOUNTER → 2019-12-12 | Outpatient (CLI) | payer MEDICARE ==
[2019-12-12 13:20] LABS: Basophils # (A) 0.1 k/uL (0-0.2); Basophils % (A) 1 %; Eosinophils # (A) 0.3 k/uL (0-0.7); Eosinophils % (A) 3 %; HCT 44.7 % (39.0-53.0); HGB 14.7 gm/dL (13.0-17.5); Lymphocytes % (A) 13 %; MCH 30.5 pg (25.0-35.0); MCHC 32.9 g/dL (31.0-37.0); MCV 92.8 fL (80.0-100.0); Mean Platelet Volume 7.1; Monocytes # (A) 0.5 k/uL (0-1.0); Monocytes % (A) 6 %; Neutrophils % (A) 76 %; Platelet Count 261 k/uL (150-450); RBC 4.81 m/uL (4.30-5.90); RDW 12.7 % (11.5-15.5); WBC 7.9 k/uL (3.8-10.6)
[2019-12-12 19:56] LABS: African American GFR (CKD) 99.2 (60.0-200.0); Anion Gap 6.7 mmol/L (4.00-12.00); BUN/Creat Ratio 22.22 Ratio (12.00-20.00); Calcium 9.1 mg/dL (8.7-10.3); Carbon Dioxide 29.3 mmol/L (21.6-31.8); Non-African American GFR(CKD) 85.6 (60.0-200.0); Potassium 4.7 mmol/L (3.5-5.5)
== END | disposition home or self-care (01) ==
LOC: LABWHC1 12:15
PROVIDERS: ATTEND Urology
DX: Z01.818 Encounter for other preprocedural examination (principal); C61 Malignant neoplasm of prostate
CPT/HCPCS: 36415; 80048; 85025

== ENCOUNTER → 2019-12-16 | Outpatient (CLI) | payer MEDICARE | END | disposition home or self-care (01) | LOC: LABWHC1 10:56 | PROVIDERS: ATTEND Urology | DX: Z11.59 Encounter for screening for other viral diseases (principal) | CPT/HCPCS: 87635 ==

== ENCOUNTER → 2019-12-22 | Outpatient (CLI) | payer MEDICARE | END | disposition home or self-care (01) | LOC: LABWHC1 12:26 | PROVIDERS: ATTEND Urology | DX: Z11.59 Encounter for screening for other viral diseases (principal) ==

== ENCOUNTER 2019-12-24 15:45 | Day surgery (SDC) | payer MEDICARE ==
[2019-12-23 11:45] VITALS: BMI 23.0
[~2019-12-24 15:45] MED LIST changes: +DEXAMETHASONE SOD PHOSPHATE 10 MG/ML 1 ML VIAL IV ONE; +HYDROmorphone 0.5 MG/0.5 ML SYRINGE IVP PRN; +LIDOCAINE 1% (10MG/ML) FOR IV START INTRADERMA PRN; +ONDANSETRON 4 MG/2 ML VIAL IVP ONE
[2019-12-24 16:23] VITALS: TEMP 97.7
[2019-12-24] MEDS ORDERED: MIDAZOLAM 2 MG/2 ML VIAL ONE (16:56)
[2019-12-24] MEDS ORDERED: KETAMINE 10 MG/ML 20 ML VIAL ONE (16:56)
[2019-12-24] MEDS ORDERED: PROPOFOL 10 MG/ML 20 ML VIAL IV ONE (16:56)
[2019-12-24] MEDS ORDERED: ALFENTANIL 500 MCG/ML 2 ML AMP IV ONE (16:56)
[2019-12-24] MEDS ORDERED: LIDOCAINE 2% INJ 20 MG/ML SQ ONE ×2 (17:08)
[2019-12-24 18:06] VITALS: RESP 16
[2019-12-24 18:49] VITALS: BP 144/88; PULSE 64
--- NOTE | 2019-12-24 21:13 | P.OP ---
Date of Procedure: 12/24/19 Preoperative Diagnosis: Adenocarcinoma of the prostate Postoperative Diagnosis: Same Procedure(s) Performed: Implantation of fiducial gold markers, SpaceOar Implant Anesthesia: MAC Surgeon: Ousmane Guerra Estimated Blood Loss (ml): 5 IV fluids (ml): 500 Pathology: none sent Condition: stable Disposition: PACU Indications for Procedure: The patient is a 69-year-old white male diagnosed with prostate cancer in March 2018. His PSA level at that time was 4.12. 6 out of 12 biopsies showed Mikey 6 adenocarcinoma. Treatment options were reviewed, and he elected to be treated with active surveillance. He underwent repeat prostate biopsies in March 2019, again revealing adenocarcinoma and 6 of 12 biopsies. 5 of these 6 showed Mikey 6, but one showed Mikey 7 (3+4). His most recent PSA level was 7.4. He has elected to be treated with SBRT, but wishes to receive a SpaceOar implant prior to the radiation therapy to decrease the risk of radiation proctitis. Operative Findings: Excellent separation of prostate and rectum is achieved. Description of Procedure: The patient was taken to the operating room and placed in the dorsolithotomy position, with his legs supported in Justin stirrups. The external genitalia was prepped and draped sterilely. The Bruel and Kjaer transrectal ultrasound probe was placed intrarectally. The prostate was imaged. The probe was then placed within the stabilizing stand. A spinal needle was advanced under ultrasonic guidance to the level of the urogenital diaphragm, and 2% lidocaine was used to infiltrate the tissues as the needle was withdrawn. This was done in the midline and also on each side of the midline. The first fiducial can marker needle was passed through the skin to the right of the midline. His was advanced into the gland under ultrasonic guidance to the base of the prostate. The needle was then withdrawn, leaving the can marker in place. A second needle was passed through the same trajectory, implanting a fiducial can marker within the right apex. The apical marker was seen very well on ultrasound, while the marker at the base was poorly visualized. A third fiducial can marker was placed at the level of the mid gland on the left, as far lateral as possible. Next, the SpaceOAR needle was passed through the midline of the perineum, 1-2 cm anterior to the anal opening. The needle was slowly advanced under ultrasonic guidance until the needle tip was located within the fat plane between the prostate and rectum, at the level of the mid prostate gland. The needle was confirmed to be midline on the axial imaging. A small amount of normal saline was injected for hydrodissection. Next, the SpaceOAR components were mixed and loaded into the Y connector per protocol. The Y connector was then connected to the needle, and the components were injected slowly over a course of approximately 12 seconds. A total of 10 ml was injected. Significant distance was created between the prostate and rectum, as desired. It should be noted that at no point was there any concern of rectal perforation. The needle was withdrawn, as well as the transrectal ultrasound probe, and the procedure was terminated. The patient tolerated the procedure well and was taken to the recovery room in stable condition.
== END 2019-12-24 19:18 | disposition home or self-care (01) ==
LOC: OR 15:45
PROVIDERS: ATTEND Urology
DX: C61 Malignant neoplasm of prostate (principal); I25.10 Atherosclerotic heart disease of native coronary artery without angina pectoris; K21.9 Gastro-esophageal reflux disease without esophagitis; E78.5 Hyperlipidemia, unspecified; I25.2 Old myocardial infarction; M19.90 Unspecified osteoarthritis, unspecified site; Z95.810 Presence of automatic (implantable) cardiac defibrillator; K44.9 Diaphragmatic hernia without obstruction or gangrene; K57.92 Diverticulitis of intestine, part unspecified, without perforation or abscess without bleeding; Z95.5 Presence of coronary angioplasty implant and graft; Z98.890 Other specified postprocedural states; Z87.891 Personal history of nicotine dependence; Z82.49 Family history of ischemic heart disease and other diseases of the circulatory system; Z80.42 Family history of malignant neoplasm of prostate; Z80.1 Family history of malignant neoplasm of trachea, bronchus and lung; Z79.899 Other long term (current) drug therapy; Z88.2 Allergy status to sulfonamides; Z88.8 Allergy status to other drugs, medicaments and biological substances; Z91.048 Other nonmedicinal substance allergy status
CPT/HCPCS: 55876; 76942; J2001; J2250; J1100; J0690; J2405; J2704

== ENCOUNTER → 2020-03-16 | Outpatient (CLI) | payer MEDICARE ==
[2020-03-16 13:07] LABS: Basophils % (A) 1 %; Eosinophils # (A) 0.2 k/uL (0-0.7); Eosinophils % (A) 3 %; HCT 42.8 % (39.0-53.0); Lymphocytes # (A) 0.7 k/uL (1.0-4.8); Lymphocytes % (A) 12 %; MCH 30.3 pg (25.0-35.0); MCHC 32.7 g/dL (31.0-37.0); MCV 92.7 fL (80.0-100.0); Mean Platelet Volume 6.9; Monocytes # (A) 0.3 k/uL (0-1.0); Monocytes % (A) 5 %; Neutrophils # (A) 4.7 k/uL (1.3-7.7); Neutrophils % (A) 78 %; Platelet Count 177 k/uL (150-450); RBC 4.61 m/uL (4.30-5.90); RDW 13.7 % (11.5-15.5); WBC 6.1 k/uL (3.8-10.6)
[2020-03-16 19:08] LABS: ALT 40 U/L (10-49); AST 33 U/L (14-35); African American GFR (CKD) 86.8 (60.0-200.0); Albumin/Globulin Ratio 2.22 (1.60-3.17); Alkaline Phosphatase 99 U/L (41-126); Calcium 8.8 mg/dL (8.7-10.3); Carbon Dioxide 26.8 mmol/L (21.6-31.8); Chloride 108 mmol/L (96-109); Chol/HDL Ratio 1.91; Cholesterol 101 mg/dL (0-200); Globulin 1.8 g/dL (1.6-3.3); Glucose 91 mg/dL (70-110); Non-African American GFR(CKD) 74.9 (60.0-200.0); Potassium 4.2 mmol/L (3.5-5.5); Sodium 141 mmol/L (135-145); Total Bilirubin 2.2 mg/dL (0.2-1.2); Total Protein 5.8 g/dL (6.2-8.2); Triglycerides <50.0 mg/dL (0.0-149.0)
[2020-03-16 19:39] LABS: Hemoglobin A1C 4.9 % (4.0-6.0)
== END | disposition home or self-care (01) ==
LOC: LABWHC1 11:18
PROVIDERS: ATTEND Internal Medicine Critical Care Medicine
DX: C61 Malignant neoplasm of prostate (principal); I25.10 Atherosclerotic heart disease of native coronary artery without angina pectoris; E78.5 Hyperlipidemia, unspecified; I21.3 ST elevation (STEMI) myocardial infarction of unspecified site
CPT/HCPCS: 36415; 80053; 80061; 82306; 83036; 84439; 84443; 85025

== ENCOUNTER → 2020-07-07 | Outpatient (CLI) | payer MEDICARE ==
[2020-07-08 03:04] LABS: Prostate Specific Antigen 1.9 ng/mL (0.0-6.5)
== END | disposition home or self-care (01) ==
LOC: LABWHC1 15:14
PROVIDERS: ATTEND Urology
DX: C61 Malignant neoplasm of prostate (principal)
CPT/HCPCS: 36415; 84153; 84403

== ENCOUNTER → 2020-10-26 | Outpatient (CLI) | payer MEDICARE | END | disposition home or self-care (01) | LOC: LABWHC1 14:59 | PROVIDERS: ATTEND Urology | DX: C61 Malignant neoplasm of prostate (principal) | CPT/HCPCS: 36415; 84153; 84403 ==

== ENCOUNTER → 2021-04-05 | Outpatient (CLI) | payer MEDICARE ==
[2021-04-05 19:18] LABS: Basophils # (A) 0.05 X 10*3/uL (0.00-0.10); Basophils % (A) 0.7 %; Eosinophils # (A) 0.37 X 10*3/uL (0.04-0.35); Eosinophils % (A) 5.2 %; HCT 40.4 % (39.6-50.0); HGB 13.3 g/dL (13.0-17.0); Lymphocytes # (A) 0.56 X 10*3/uL (0.90-5.00); Lymphocytes % (A) 7.8 %; MCH 31.3 pg (27.0-32.0); MCHC 32.9 g/dL (32.0-37.0); MCV 95.1 fL (80.0-97.0); Mean Platelet Volume 9.6 fL (9.5-12.2); Monocytes # (A) 0.54 X 10*3/uL (0.20-1.00); Monocytes % (A) 7.6 %; Neutrophils % (A) 78.4 %; Platelet Count 199 X 10*3/uL (140-440); RBC 4.25 X 10*6/uL (4.40-5.60); RDW 14.1 % (11.5-14.5); WBC 7.14 X 10*3/uL (4.50-10.00)
[2021-04-05 21:26] LABS: Hemoglobin A1C 4.9 % (4.0-6.0)
[2021-04-06 15:15] LABS: African American GFR (CKD) 97.9 (60.0-200.0); Albumin 4.3 g/dL (3.80-4.90); Albumin/Globulin Ratio 2.69 (1.60-3.17); Anion Gap 12.1 mmol/L (4.00-12.00); BUN/Creat Ratio 22.22 Ratio (12.00-20.00); Bilirubin, Conjugated 0.9 mg/dL (0.20-0.40); Bilirubin,Unconjugated 1.4 mg/dL; Calcium 8.8 mg/dL (8.7-10.3); Carbon Dioxide 23.9 mmol/L (21.6-31.8); Chol/HDL Ratio 1.92; Globulin 1.6 g/dL (1.6-3.3); LDL Cholesterol,Calculated 34.8 mg/dL (0.0-131.0); Non-African American GFR(CKD) 84.4 (60.0-200.0); Total Bilirubin 2.3 mg/dL (0.3-1.2); Total Protein 5.9 g/dL (6.2-8.2); VLDL Calculation 10.2 mg/dL (5.00-40.00)
== END | disposition home or self-care (01) ==
LOC: LABWHC1 11:31
PROVIDERS: ATTEND Internal Medicine Critical Care Medicine
DX: Z00.00 Encounter for general adult medical examination without abnormal findings (principal); C61 Malignant neoplasm of prostate; R53.83 Other fatigue; I25.10 Atherosclerotic heart disease of native coronary artery without angina pectoris; E78.5 Hyperlipidemia, unspecified; E55.9 Vitamin D deficiency, unspecified
CPT/HCPCS: 36415; 80053; 80061; 82248; 82306; 83036; 84439; 84443; 85025

== ENCOUNTER → 2021-04-28 | Outpatient (CLI) | payer MEDICARE | END | disposition home or self-care (01) | LOC: LABWHC1 15:15 | PROVIDERS: ATTEND Urology | DX: C61 Malignant neoplasm of prostate (principal) | CPT/HCPCS: 36415; 84153 ==

== ENCOUNTER → 2021-07-14 | Outpatient (CLI) | payer MEDICARE ==
--- NOTE | 2021-07-15 09:31 | CT ---
EXAMINATION TYPE: CT lumbar spine wo con DATE OF EXAM: 07/14/2021 COMPARISON: Prior CT 03/23/2017 HISTORY: lower back and leg pain CT DLP: 462.2 mGycm Automated exposure control for dose reduction was used. An unenhanced CT of the lumbar spine was performed. Bone and soft tissue window settings are submitt ed as well as coronal and sagittal reconstructions. FINDINGS: Again noted is a spinal curvature. Lumbar vertebral bodies show preserved height, stable mineralizati on. No significant spinal stenosis is evident. Loss of disc height is greatest at L5-S1 with multilev el spondylosis, hypertrophic spondylosis greatest at L5-S1, there is associated vacuum phenomenon. Lo ss of disc height also present L3-4. L1-L2: Normal disc space height. No disc herniation protrusion or central stenosis. No facet joint arthropathy. No evidence for foraminal encroachment. L2-L3: Normal disc space height. No disc herniation protrusion or central stenosis. No facet joint arthropathy. No evidence for foraminal encroachment. L3-L4: Circumferential posterior disc bulge causes mild anterior mass effect on the thecal sac, later al extension encroaches minimally on the inferior aspect of the foramen on the left. L4-L5: Posterior broad-based disc bulge causes anterior mass effect on the thecal sac. There is an ec centric appearance towards the left, circumferential disc bulge encroaches somewhat on the inferior a spect of the left neural foramen. There is some facet arthropathy with hypertrophy ligamentum flavum causing posterior lateral mass effect on the thecal sac. L5-S1: Posterior extension endplate disc complex causes anterior mass effect on the thecal sac simila r to prior exam, somewhat eccentric towards the left, facet arthropathy change encroaches somewhat on the lateral recess on the left greater than right likely contributed by the spinal curvature, circum ferential extension of endplate disc complex results in foraminal encroachment greater on the right t boone on the left. There may be some mass effect on the left S1 nerve root proximally. IMPRESSION: No paraspinal masses are identified. Lumbar segments are intact. Spinal curvature, degenerative disc disease, facet arthropathy, correlate for radiculopathy left S1 and possibly L5 distribution. Findin gs are similar to prior exam.
== END | disposition home or self-care (01) ==
LOC: RADCTMAIN 14:40
PROVIDERS: ATTEND Psychiatry & Neurology Neurology
DX: M51.36 Other intervertebral disc degeneration, lumbar region (principal); M54.16 Radiculopathy, lumbar region
CPT/HCPCS: 72131

== ENCOUNTER → 2022-04-05 | Outpatient (CLI) | payer MEDICARE ==
[2022-04-05 17:58] LABS: Basophils # (A) 0.04 X 10*3/uL (0.00-0.10); Basophils % (A) 0.6 %; Eosinophils # (A) 0.14 X 10*3/uL (0.04-0.35); HCT 42.2 % (39.6-50.0); HGB 14.3 g/dL (13.0-17.0); Immature Grans, Automated 0.1 %; Lymphocytes # (A) 0.94 X 10*3/uL (0.90-5.00); Lymphocytes % (A) 13.5 %; MCH 31.6 pg (27.0-32.0); MCHC 33.9 g/dL (32.0-37.0); MCV 93.4 fL (80.0-97.0); Mean Platelet Volume 9.6 fL (9.5-12.2); Monocytes % (A) 7.2 %; NRBC Per 100 WBC 0 /100 WBCS (0.0-0.0); Neutrophils # (A) 5.34 X 10*3/uL (1.80-7.70); Neutrophils % (A) 76.6 %; Platelet Count 241 X 10*3/uL (140-440); RBC 4.52 X 10*6/uL (4.40-5.60); RDW 13.4 % (11.5-14.5); WBC 6.97 X 10*3/uL (4.50-10.00)
[2022-04-05 20:05] LABS: Chol/HDL Ratio 1.79 Ratio; LDL Cholesterol,Calculated 31.4 mg/dL (0.0-131.0); VLDL Calculation 10.46 mg/dL (5.00-40.00)
[2022-04-05 20:56] LABS: ALT 25 U/L (10-49); AST 26 U/L (14-35); African American GFR (CKD) 85.6 (60.0-200.0); Albumin 4.3 g/dL (3.8-4.9); Albumin/Globulin Ratio 2.69 (1.60-3.17); Alkaline Phosphatase 92 U/L (41-126); Blood Urea Nitrogen 15.3 mg/dL (9.0-27.0); Calcium 9.1 mg/dL (8.7-10.3); Carbon Dioxide 25.7 mmol/L (20.0-27.5); Chloride 103 mmol/L (96-109); Globulin 1.6 g/dL (1.6-3.3); Glucose 88 mg/dL (70-110); Non-African American GFR(CKD) 73.8 (60.0-200.0); Potassium 4.4 mmol/L (3.5-5.5); Sodium 139 mmol/L (135-145); Total Protein 5.9 g/dL (6.2-8.2)
== END | disposition home or self-care (01) ==
LOC: LABWHC1 13:43
PROVIDERS: ATTEND Internal Medicine Critical Care Medicine
DX: I25.10 Atherosclerotic heart disease of native coronary artery without angina pectoris (principal); E78.5 Hyperlipidemia, unspecified; I21.9 Acute myocardial infarction, unspecified
CPT/HCPCS: 36415; 80053; 80061; 82306; 83036; 84153; 84403; 84439; 84443; 85025

== ENCOUNTER 2022-05-19 05:33 | Day surgery (SDC) | payer MEDICARE ==
[2022-05-17 15:33] VITALS: BMI 23.9
[2022-05-19] MEDS ORDERED: LIDOCAINE 1% (10MG/ML) FOR IV START INTRADERMA PRN (05:40)
[2022-05-19] MEDS ORDERED: LACTATED RINGERS 1,000 ML IV SCH (05:40)
[2022-05-19 06:33] VITALS: RESP 16; TEMP 97
[2022-05-19] MEDS ORDERED: MIDAZOLAM 2 MG/2 ML VIAL ONE (06:34)
[2022-05-19] MEDS ORDERED: fentaNYL (PF) 50 MCG/ML 2 ML AMP ONE (06:34)
[2022-05-19] MEDS ORDERED: PROPOFOL 10 MG/ML 20 ML VIAL IV ONE (06:34)
--- NOTE | 2022-05-19 06:57 | P.PCN ---
Date of Procedure: 05/19/22 Procedure(s) Performed: Brief history: Patient is a pleasant 72-year-old white male scheduled for an elective upper endoscopy as well as colonoscopy as a part of evaluation of GERD and screening for colon cancer Procedure performed: Esophagogastroduodenoscopy with biopsy Colonoscopy with biopsy Preoperative diagnosis: GERD and screening for colon cancer Anesthesia: [facility] [place] Procedure: After informed consent was obtained from the patient was brought into the endoscopy unit and IV sedation was administered by anesthesia under continuous monitoring. Initially upper endoscopy was done. The Olympus GF 160 video endoscope was inserted inserted into the mouth and esophagus intubated without any difficulty and was gradually advanced into the stomach and duodenum and carefully examined. The bulb and second part of the duodenum appeared normal. The scope was then withdrawn into the stomach adequately insufflated with air and upon careful examination the antrum had mild gastritis and biopsies were done from this area. The body the stomach there are multiple small polyps noted in the biopsy. Mucosa of the body, cardia and fundus appeared normal. The scope was then withdrawn into the esophagus. The GE junction was located at 40 cm to the incisors. Small sliding-type well hernia noted. It appeared irregular with no erythema erosions or ulcerations. Rest of the esophagus appeared normal. Patient tolerated the procedure well. At this time the patient continued to remain sedation. Initial digital rectal examination was normal. Olympus CF 160 video colonoscope was then inserted into the rectum and gradually advanced to the cecum without any difficulty. Careful examination was performed as the scope was gradually being withdrawn. The prep was excellent. The cecum, ascending colon, transverse colon, descending colon, normal. In the proximal; sigmoid colon at 40 cm from the anal verge there was a diverticulum that appeared inflamed with surrounding edema, and erythema which was biopsied. Scattered sigmoid diverticulosis seen. In the distal sigmoid colon there was a 3 mm polyp that was removed by cold biopsy. The rectum appeared normal. Retroflexion was performed in the rectum and no lesions were noted. Patient tolerated the procedure well. Impression: 1. Upper f endoscopy revealed mild antral gastritis, multiple gastric polyps and small sliding type hiatal hernia 2. Colonoscopy revealed scattered sigmoid diverticulosis, possible acute sigmoid diverticulitis and the 3 mm sigmoid colon polyps status post cold biopsy Recommendations: Findings of this examination were discussed with the patient as well a his family. He was advised to follow with the biopsy results. Continue with current medications and follow antireflux measures. Recommend repeat colonoscopy in 5 years based the biopsy results.
[2022-05-19 07:18] VITALS: BP 118/73; PULSE 60
== END 2022-05-19 07:45 | disposition home or self-care (01) ==
LOC: ORWHC2ENDO 05:33
PROVIDERS: ATTEND Internal Medicine Gastroenterology
DX: Z12.11 Encounter for screening for malignant neoplasm of colon (principal); K63.5 Polyp of colon; K31.7 Polyp of stomach and duodenum; K21.9 Gastro-esophageal reflux disease without esophagitis; K57.30 Diverticulosis of large intestine without perforation or abscess without bleeding; K44.9 Diaphragmatic hernia without obstruction or gangrene; K29.50 Unspecified chronic gastritis without bleeding; K62.6 Ulcer of anus and rectum; I25.10 Atherosclerotic heart disease of native coronary artery without angina pectoris; I25.2 Old myocardial infarction; I10 Essential (primary) hypertension; E78.5 Hyperlipidemia, unspecified; F41.9 Anxiety disorder, unspecified; Z88.2 Allergy status to sulfonamides
CPT/HCPCS: 88305; 45380; 43239; J2250; J3010; J2704

== ENCOUNTER → 2022-10-24 | Outpatient (CLI) | payer MEDICARE | END | disposition home or self-care (01) | LOC: LABWHC1 13:23 | PROVIDERS: ATTEND Urology | DX: C61 Malignant neoplasm of prostate (principal) | CPT/HCPCS: 36415; 84153 ==

== ENCOUNTER 2023-03-24 12:16 | Emergency (ER) | payer MEDICARE ==
[2023-03-24] MEDS ORDERED: ONDANSETRON 4 MG/2 ML VIAL IVP STA (12:41)
[2023-03-24] MEDS ORDERED: SODIUM CHLORIDE 0.9% 1,000 ML IV STA (12:41)
[2023-03-24] MEDS ORDERED: KETOROLAC 15 MG/ML 1 ML VIAL IVP STA (12:41)
--- NOTE | 2023-03-24 12:52 | ED ---
General Adult HPI - General Chief complaint: Abdominal Pain Stated complaint: Abd Pain Time Seen by Provider: 03/24/23 12:29 Source: patient, RN notes reviewed, old records reviewed Mode of arrival: ambulatory Limitations: no limitations - History of Present Illness Initial comments: Patient is a 73-year-old male with past medical history remarkable for previous prostate cancer currently in remission, prior SD with AICD, GERD, CAD who presents emergency Department complaining of lower abdominal pain. Abdominal pain has been present since this morning. States it is suprapubic, as well as bilateral left and right lower quadrants. Associated with mild urinary retention as well as what he describes as constipation this morning. Attempted to use an enema with minimal improvement. Also had some urinary retention at home but that passed. Denies any fevers or chills. Denies any diarrhea. Denies any emesis but does endorse mild nausea. Denies chest pain or shortness of breath. Denies any flank pain or back pain. Patient has a history of diverticulitis and is concerned that he may have that as well. His no other acute complaints at this time. Presents for further evaluation at this time. - Related Data Home Medications Medication Instructions Recorded Confirmed Aspirin EC [Ecotrin] 81 mg PO DAILY 01/10/15 05/17/22 Magnesium 250 mg PO DAILY 01/10/15 05/17/22 Carvedilol [Coreg] 12.5 mg PO BID 07/12/15 05/17/22 Atorvastatin [Lipitor] 80 mg PO HS 10/23/16 05/17/22 L.acidoph,Paracasei, B.lactis 1 cap PO DAILY PRN 10/23/16 05/17/22 [Probiotic] lisinopriL [Zestril] 10 mg PO QAM 10/23/16 05/17/22 Omeprazole 40 mg PO QAM 05/05/19 05/17/22 Vitamin B Complex W/Vitamin C 1 cap PO DAILY 05/05/19 05/17/22 Ezetimibe [Zetia] 10 mg PO DAILY 05/17/22 05/17/22 Tamsulosin HCl [Flomax] 0.4 mg PO HS 05/17/22 05/17/22 Zinc Gluconate [Zinc] 25 mg PO DAILY 05/17/22 05/17/22 Previous Rx's Medication Instructions Recorded Ondansetron Odt [Zofran Odt] 4 mg PO Q8HR PRN 2 Days #6 tab 03/24/23 Allergies Allergy/AdvReac Type Severity Reaction Status Date / Time captopril Allergy Rash/Hives Verified 03/24/23 12:29 Sulfa (Sulfonamide Allergy Rash/Hives Verified 03/24/23 12:29 Antibiotics) environmental allegies Allergy Unknown - Uncoded 03/24/23 12:29 Seasonal Review of Systems ROS Statement: Those systems with pertinent positive or pertinent negative responses have been documented in the HPI. Review of Systems: CONST: Denies fever EYES: Denies blurry vision ENT: Denies nasal congestion C/V: Denies Chest pain RESP: Denies shortness of breath GI: Endorses abdominal pain : Denies dysuria SKIN: Denies rash. MSK: Denies joint pain. NEURO: Denies headache ROS Other: All systems not noted in ROS Statement are negative. Past Medical History Past Medical History: Coronary Artery Disease (CAD), GERD/Reflux, Myocardial Infarction (SD), Prostate Disorder Additional Past Medical History / Comment(s): belching and bloating stomach, increased flatulance,hiatal hernia, diverticulitis, having difficulty swallowing meat and recent intermittent burning sensation to tongue, diverticulitis, SD x2, bronchitis, enlarged prostate possible ca of prostate-tx w/ radiation Last Myocardial Infarction Date:: 2012 History of Any Multi-Drug Resistant Organisms: None Reported Past Surgical History: AICD, Heart Catheterization, Heart Catheterization With Stent, Orthopedic Surgery, Tonsillectomy Additional Past Surgical History / Comment(s): heart stents x2, EGD, colonoscopy, left knee arthroscopy x 2, rt arm bicep tendon surgery Past Anesthesia/Blood Transfusion Reactions: No Reported Reaction Date of Last Stent Placement:: 2012 Type of Cardiac Device: AICD Device Placement Date:: 07/2013 Past Psychological History: Anxiety Smoking Status: Former smoker Past Alcohol Use History: None Reported Past Drug Use History: None Reported - Past Family History Mother Family Medical History: Congestive Heart Failure (CHF) Father Family Medical History: Cancer Additional Family Medical History / Comment(s): prostate Sister(s) Family Medical History: Cancer Additional Family Medical History / Comment(s): lung cancer General Exam - General Exam Comments Initial Comments: General: Appears in mild distress secondary to abdominal pain. HEAD: Normal with no signs of head trauma. EYES: PERRLA, EOMI, conjunctiva normal, no discharge. ENT: Hearing grossly intact, normal oropharynx. RESPIRATORY: Clear breath sounds bilaterally. No wheezes, rales, or rhonchi. C/V: Regular rate and rhythm. S1 and S2 auscultated, no edema, peripheral pulses 2+ and intact throughout ABD: Abdomen is soft, nondistended. Tender to palpation in the bilateral lower quadrants as well as suprapubically. No guarding. No rebound tenderness. No peritoneal signs. EXT: Normal range of motion, no obvious deformity SKIN: No rashes or lesions observed on exposed skin. NEURO: Alert and oriented 4. Limitations: no limitations Course Vital Signs 03/24/23 03/24/23 03/24/23 12:26 13:28 14:00 Temperature 98.1 F Pulse Rate 86 100 86 Respiratory 20 20 16 Rate Blood Pressure 144/83 140/80 145/79 O2 Sat by Pulse 99 98 98 Oximetry 03/24/23 03/24/23 03/24/23 15:00 16:00 17:40 Temperature 98.4 F Pulse Rate 91 68 92 Respiratory 18 16 18 Rate Blood Pressure 153/83 130/68 134/80 O2 Sat by Pulse 99 98 96 Oximetry Medical Decision Making - Medical Decision Making Was pt. sent in by a medical professional or institution (CLAIRE Kim, CATERING ADMINISTRATIVE ASSISTANT, urgent care, hospital, or fdc...) When possible be specific @ -No Did you speak to anyone other than the patient for history (EMS, parent, family, police, friend...)? What history was obtained from this source @ -No Did you review nursing and triage notes (agree or disagree)? Why? @ -I reviewed and agree with nursing and triage notes Were old charts reviewed (outside hosp., previous admission, EMS record, old EKG, old radiological studies, urgent care reports/EKG's, fdc records)? Report findings @ -No old charts were reviewed Differential Diagnosis (chest pain, altered mental status, abdominal pain women, abdominal pain men, vaginal bleeding, weakness, fever, dyspnea, syncope, headache, dizziness, GI bleed, back pain, seizure, CVA, palpatations, mental health, musculoskeletal)? @ -Differential Abdominal Pain Men: Appendicitis, cholecystitis, diverticulosis, ischemic bowel, pancreatitis, hepatitis, UTI, gastroenteritis, AAA, incarcerated hernia, bowel obstruction, constipation, inflammatory bowel, hepatitis, peptic ulcer disease, splenic infarction, perforated viscus, testicular torsion, this is not meant to be an all-inclusive list EKG interpreted by me (3pts min.). @ -None done X-rays interpreted by me (1pt min.). @ -None done CT interpreted by me (1pt min.). @ -CT showed a rectal fecaloma as well as the catheter left in place. Radiology concerned for possible stercoral colitis. U/S interpreted by me (1pt. min.). @ -None done What testing was considered but not performed or refused? (CT, X-rays, U/S, labs)? Why? @ -None What meds were considered but not given or refused? Why? @ -None Did you discuss the management of the patient with other professionals (professionals i.e. , PA, CATERING ADMINISTRATIVE ASSISTANT, lab, RT, psych nurse, addiction social worker, lean leader, teacher, staff antisubmarine officer, case mgr)? Give summary @ -No Was smoking cessation discussed for >3mins.? @ -No Was critical care preformed (if so, how long)? @ -No Were there social determinants of health that impacted care today? How? (Homelessness, low income, unemployed, alcoholism, drug addiction, transportation, low edu. Level, literacy, decrease access to med. care, assisted, rehab)? @ -No Was there de-escalation of care discussed even if they declined (Discuss DNR or withdrawal of care, Hospice)? DNR status @ -No What co-morbidities impacted this encounter? (DM, HTN, Smoking, COPD, CAD, Can cer, CVA, ARF, Chemo, Hep., AIDS, mental health diagnosis, sleep apnea, morbid obesity)? @ -None Was patient admitted / discharged? Hospital course, mention meds given and route, prescriptions, significant lab abnormalities, going to OR and other pertinent info. @ -Based on the patient's presentation and physical exam, I'm concerned for acu te intra-abdominal process for his current symptoms. We will obtain abdominal laboratory studies, CT abdomen and pelvis. We also obtain a bladder scan. Patient be symptomatically treated with 1 L fluid bolus, IV Zofran and Toradol. Patient was in agreement this plan. Vital signs within acceptable limits. Patient's bladder scan revealed over 400 mL of urine as a postvoid residual for the patient. Patient was only able to void out a small amount of urine. Patient states that this has slowly gotten worse over the last few weeks. We did discuss placement of the Betancur catheter versus straight catheterization accepted before catheter with plan for a leg bag. 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 Patient's labs are within acceptable limits including a normal lactic acid, no leukocytosis. I discussed results with the patient. I did offer him rectal disimpaction however he elects for attempt with enema first. He was in agreement this plan. Patient had multiple large bowel movements following the enema. States pain has nearly resolved at this time. As he had multiple bowel movements, do believe that he likely cleared a blockage. He would like to be discharged home at this time and I believe this is reasonable. He'll be given an additional enema to take home as well as Zofran ODT tablets. Patient was in agreement this plan. Strict return precautions discussed. He will follow-up with his urologist next week for the urinary retention. I will provide the patient with a prescription for Zofran. I instructed the patient to follow up with their PCP in the next 1-3 days. . I explained that the patient should return to the emergency department if they experience any worsening symptoms. Strict return precautions were discussed with the patient. The patient expressed understanding of these instructions. I answered all questions that the patient had. The patient was discharged home in good condition with their prescriptions and follow up information. Undiagnosed new problem with uncertain prognosis? @ -No Drug Therapy requiring intensive monitoring for toxicity (Heparin, Nitro, Insulin, Cardizem)? @ -No Were any procedures done? @ -No Diagnosis/symptom? @ -Urinary retention status post Betancur catheter placement Acute, or Chronic, or Acute on Chronic? @ -Acute Uncomplicated (without systemic symptoms) or Complicated (systemic symptoms)? @ -Complicated Side effects of treatment? @ -none Exacerbation, Progression, or Severe Exacerbation] @ -no Poses a threat to life or bodily function? @ -no Diagnosis/symptom? @ -Rectal fecaloma, constipation. Appears to be resolved Acute, or Chronic, or Acute on Chronic? @ -Acute Uncomplicated (without systemic symptoms) or Complicated (systemic symptoms)? @ -Complicated Side effects of treatment? @ -none Exacerbation, Progression, or Severe Exacerbation] @ -no Poses a threat to life or bodily function? @ -no - Lab Data Result diagrams: 03/24/23 12:36 03/24/23 12:36 Lab Results 03/24/23 03/24/23 03/24/23 Range/Units 12:36 12:36 12:44 WBC 9.2 (3.8-10.6) k/uL RBC 5.17 (4.30-5.90) m/uL Hgb 16.7 (13.0-17.5) gm/dL Hct 47.5 (39.0-53.0) % MCV 91.8 (80.0-100.0) fL MCH 32.2 (25.0-35.0) pg MCHC 35.1 (31.0-37.0) g/dL RDW 14.0 (11.5-15.5) % Plt Count 287 (150-450) k/uL MPV 7.3 Neutrophils % 85 % Lymphocytes % 8 % Monocytes % 4 % Eosinophils % 2 % Basophils % 0 % Neutrophils # 7.8 H (1.3-7.7) k/uL Lymphocytes # 0.8 L (1.0-4.8) k/uL Monocytes # 0.4 (0-1.0) k/uL Eosinophils # 0.2 (0-0.7) k/uL Basophils # 0.0 (0-0.2) k/uL PT 10.6 (9.0-12.0) sec INR 1.0 (<1.2) APTT 23.9 (22.0-30.0) sec Sodium 138 (137-145) mmol/L Potassium 4.1 (3.5-5.1) mmol/L Chloride 103 (98-107) mmol/L Carbon Dioxide 29 (22-30) mmol/L Anion Gap 6 mmol/L BUN 20 (9-20) mg/dL Creatinine 0.87 (0.66-1.25) mg/dL Est GFR (CKD-EPI)AfAm >90 (>60 ml/min/1.73 sqM) Est GFR (CKD-EPI)NonAf 85 (>60 ml/min/1.73 sqM) Glucose 96 (74-99) mg/dL Plasma Lactic Acid Noah (0.7-2.0) mmol/L Calcium 9.6 (8.4-10.2) mg/dL Total Bilirubin 2.4 H (0.2-1.3) mg/dL AST 49 (17-59) U/L ALT 45 (4-49) U/L Alkaline Phosphatase 98 (38-126) U/L Total Protein 7.3 (6.3-8.2) g/dL Albumin 4.8 (3.5-5.0) g/dL Amylase 80 (30-110) U/L Lipase 292 (23-300) U/L Urine Color Urine Appearance (Clear) Urine pH (5.0-8.0) Ur Specific [place] (1.001-1.035) Urine Protein (Negative) Urine Glucose (UA) (Negative) Urine Ketones (Negative) Urine Blood (Negative) Urine Nitrite (Negative) Urine Bilirubin (Negative) Urine Urobilinogen (<2.0) mg/dL Ur Leukocyte Esterase (Negative) 03/24/23 03/24/23 Range/Units 12:44 12:44 WBC (3.8-10.6) k/uL RBC (4.30-5.90) m/uL Hgb (13.0-17.5) gm/dL Hct (39.0-53.0) % MCV (80.0-100.0) fL MCH (25.0-35.0) pg MCHC (31.0-37.0) g/dL RDW (11.5-15.5) % Plt Count (150-450) k/uL MPV Neutrophils % % Lymphocytes % % Monocytes % % Eosinophils % % Basophils % % Neutrophils # (1.3-7.7) k/uL Lymphocytes # (1.0-4.8) k/uL Monocytes # (0-1.0) k/uL Eosinophils # (0-0.7) k/uL Basophils # (0-0.2) k/uL PT (9.0-12.0) sec INR (<1.2) APTT (22.0-30.0) sec Sodium (137-145) mmol/L Potassium (3.5-5.1) mmol/L Chloride (98-107) mmol/L Carbon Dioxide (22-30) mmol/L Anion Gap mmol/L BUN (9-20) mg/dL Creatinine (0.66-1.25) mg/dL Est GFR (CKD-EPI)AfAm (>60 ml/min/1.73 sqM) Est GFR (CKD-EPI)NonAf (>60 ml/min/1.73 sqM) Glucose (74-99) mg/dL Plasma Lactic Acid Noah 1.5 (0.7-2.0) mmol/L Calcium (8.4-10.2) mg/dL Total Bilirubin (0.2-1.3) mg/dL AST (17-59) U/L ALT (4-49) U/L Alkaline Phosphatase (38-126) U/L Total Protein (6.3-8.2) g/dL Albumin (3.5-5.0) g/dL Amylase (30-110) U/L Lipase (23-300) U/L Urine Color Yellow Urine Appearance Clear (Clear) Urine pH 6.0 (5.0-8.0) Ur Specific [place] 1.019 (1.001-1.035) Urine Protein Negative (Negative) Urine Glucose (UA) Negative (Negative) Urine Ketones Negative (Negative) Urine Blood Negative (Negative) Urine Nitrite Negative (Negative) Urine Bilirubin Negative (Negative) Urine Urobilinogen <2.0 (<2.0) mg/dL Ur Leukocyte Esterase Negative (Negative) Disposition Clinical Impression: Constipation, Urinary retention, Betancur catheter in place, Impacted stool in rectum Disposition: HOME SELF-CARE Condition: Fair Instructions (If sedation given, give patient instructions): Constipation (ED), Urinary Retention in Men (ED), Betancur Catheter Placement and Care (ED), How to Change a Catheter Drainage Bag (DC) Prescriptions: Ondansetron Odt [Zofran Odt] 4 mg PO Q8HR PRN 2 Days #6 tab PRN Reason: Nausea Is patient prescribed a controlled substance at d/c from ED?: No Referrals: Vega Davies DO [Primary Care Provider] - 1-2 days Time of Disposition: 16:31
[2023-03-24 13:30] LABS: Basophils % (A) 0 %; Eosinophils # (A) 0.2 k/uL (0-0.7); Eosinophils % (A) 2 %; HCT 47.5 % (39.0-53.0); HGB 16.7 gm/dL (13.0-17.5); Lymphocytes # (A) 0.8 k/uL (1.0-4.8); Lymphocytes % (A) 8 %; MCH 32.2 pg (25.0-35.0); MCHC 35.1 g/dL (31.0-37.0); MCV 91.8 fL (80.0-100.0); Mean Platelet Volume 7.3; Monocytes # (A) 0.4 k/uL (0-1.0); Monocytes % (A) 4 %; Neutrophils # (A) 7.8 k/uL (1.3-7.7); Neutrophils % (A) 85 %; Platelet Count 287 k/uL (150-450); RBC 5.17 m/uL (4.30-5.90); WBC 9.2 k/uL (3.8-10.6)
[2023-03-24 13:46] LABS: Partial Thromboplastin Time 23.9 sec (22.0-30.0); Prothrombin Time 10.6 sec (9.0-12.0)
[2023-03-24 13:56] LABS: ALT 45 U/L (4-49); AST 49 U/L (17-59); African American GFR (CKD) >90 (>60 ml/min/1.73 sqM); Albumin 4.8 g/dL (3.5-5.0); Alkaline Phosphatase 98 U/L (38-126); Amylase 80 U/L (30-110); Anion Gap 6 mmol/L; Blood Urea Nitrogen 20 mg/dL (9-20); Calcium 9.6 mg/dL (8.4-10.2); Carbon Dioxide 29 mmol/L (22-30); Chloride 103 mmol/L (98-107); Glucose 96 mg/dL (74-99); Lipase 292 U/L (23-300); Non-African American GFR(CKD) 85 (>60 ml/min/1.73 sqM); Potassium 4.1 mmol/L (3.5-5.1); Sodium 138 mmol/L (137-145); Total Bilirubin 2.4 mg/dL (0.2-1.3); Total Protein 7.3 g/dL (6.3-8.2)
[2023-03-24 14:09] LABS: Appearance,Urine Clear (Clear); Bilirubin,Urine Negative (Negative); Blood,Urine Negative (Negative); Color,Urine Yellow; Glucose,Urine (UA) Negative (Negative); Ketones,Urine Negative (Negative); Leukocyte Esterase,Urine Negative (Negative); Nitrite,Urine Negative (Negative); Protein,Urine Negative (Negative); Specific Gravity,Urine 1.019 (1.001-1.035); Urobilinogen,Urine <2.0 mg/dL (<2.0)
--- NOTE | 2023-03-24 14:49 | CT ---
EXAMINATION TYPE: CT abdomen pelvis w con CT DLP: 784.4 mGycm, Automated exposure control for dose reduction was used. DATE OF EXAM: 03/24/2023 2:36 PM COMPARISON: CT abdomen pelvis most recent from 06/11/2019 . CLINICAL INDICATION:Male, 73 years old with history of abdominal pain, lower. hx diverticulitis; Rt s madan abdominal pain. Urinary retention. Constipation. TECHNIQUE: Standard CT of the abdomen and pelvis following the administration of 100 cc of Isovue 3 00 IV contrast material. Coronal and sagittal reformats were performed. FINDINGS: LOWER CHEST: Posterior dependent subsegmental atelectasis is noted. Mild cardiomegaly. Cardiac pacing lead within the right ventricle. External pacing lead identified. ABDOMEN LIVER: Unremarkable GALLBLADDER AND BILE DUCTS: Unremarkable. PANCREAS: Unremarkable. SPLEEN: Unremarkable. ADRENAL GLANDS: Unremarkable. KIDNEYS AND URETERS: No evidence of hydronephrosis or renal calculus. The kidneys enhance symmetrical ly. PELVIS BLADDER: Nondistended with Betancur catheter in place. Circumferential wall thickening identified. REPRODUCTIVE: Brachytherapy seeds in the region of the prostate gland. ABDOMEN & PELVIS STOMACH AND BOWEL: Small hiatal hernia. Rectal fecaloma without surrounding fat stranding. Distal col onic diverticulosis without evidence for acute diverticulitis. The appendix is within normal limits. No evidence of bowel obstruction. PERITONEUM: No evidence of pneumoperitoneum or free fluid. VASCULATURE: Mild atherosclerotic calcifications are present throughout the abdominal aorta and its b ranches. No evidence of aortic aneurysm. MUSCULOSKELETAL: No acute osseous abnormalities. Mild disc degeneration changes are present throughou t the thoracolumbar spine. This is most prominent at L5-S1. S-shaped square curvature of the spine. P resacral edema. LYMPH NODES: No gross evidence for lymphadenopathy. SOFT TISSUE/ABDOMINAL WALL: Unremarkable IMPRESSION: 1. 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 2. Colonic diverticulosis without evidence for acute diverticulitis. 3. Circumferential wall thickening of the ureter bladder with Betancur catheter in place. This may be re lated to underdistention versus cystitis. Correlate with urinalysis.
[2023-03-24] MEDS ORDERED: NA PHOS,M-B/NA PHOS,DI-BA 133 ML ENEMA RECTAL STA (15:26)
[2023-03-24] MEDS ORDERED: NA PHOS,M-B/NA PHOS,DI-BA 133 ML ENEMA RECTAL ONE (17:00)
[2023-03-24] MEDS ORDERED: ONDANSETRON 4 MG ODT STARTER PACK 2 TAB BTL PO STA (17:35)
[2023-03-24 17:42] VITALS: BP 134/80; PULSE 92; RESP 18; TEMP 98.4
== END 2023-03-24 18:03 | disposition home or self-care (01) ==
LOC: EC 12:16
DX: R33.8 Other retention of urine (principal); K57.30 Diverticulosis of large intestine without perforation or abscess without bleeding; K56.41 Fecal impaction; I25.10 Atherosclerotic heart disease of native coronary artery without angina pectoris; K21.9 Gastro-esophageal reflux disease without esophagitis; I25.2 Old myocardial infarction; Z86.59 Personal history of other mental and behavioral disorders; Z87.891 Personal history of nicotine dependence; Z88.6 Allergy status to analgesic agent; Z88.2 Allergy status to sulfonamides; Z88.8 Allergy status to other drugs, medicaments and biological substances; Z79.82 Long term (current) use of aspirin; Z95.5 Presence of coronary angioplasty implant and graft; Z88.1 Allergy status to other antibiotic agents
CPT/HCPCS: 36415; 80053; 82150; 83605; 83690; 85025; 85610; 85730; 81003; 74177; 99284; 96374; 96375; 96361; 51702; J2405; J1885; S0119; Q9967

== ENCOUNTER → 2023-07-04 | Outpatient (CLI) | payer MEDICARE ==
[2023-07-04 19:18] LABS: Basophils # (A) 0.03 X 10*3/uL (0.00-0.10); Basophils % (A) 0.5 %; Eosinophils # (A) 0.15 X 10*3/uL (0.04-0.35); Eosinophils % (A) 2.5 %; HCT 41.3 % (39.6-50.0); Lymphocytes # (A) 0.73 X 10*3/uL (0.90-5.00); Lymphocytes % (A) 12.1 %; MCH 31.5 pg (27.0-32.0); MCHC 33.9 g/dL (32.0-37.0); Mean Platelet Volume 9.5 FL (9.5-12.2); Monocytes # (A) 0.41 X 10*3/uL (0.20-1.00); Monocytes % (A) 6.8 %; NRBC Per 100 WBC 0 X 10*3/uL (0.00-0.01); Neutrophils # (A) 4.69 X 10*3/uL (1.80-7.70); Neutrophils % (A) 77.9 %; Platelet Count 213 X 10*3/uL (140-440); RBC 4.44 X 10*6/uL (4.40-5.60); RDW 13.6 % (11.5-14.5); WBC 6.02 X 10*3/uL (4.50-10.00)
[2023-07-04 21:07] LABS: ALT 35 U/L (10-49); AST 33 U/L (14-35); Albumin 4.2 g/dL (3.8-4.9); Albumin/Globulin Ratio 2.62 Ratio (1.60-3.17); Alkaline Phosphatase 93 U/L (41-126); BUN/Creat Ratio 14.36 Ratio (12.00-20.00); Blood Urea Nitrogen 15.8 mg/dL (9.0-27.0); Calcium 9.3 mg/dL (8.7-10.3); Carbon Dioxide 23.4 mmol/L (21.6-31.8); Chloride 105 mmol/L (96-109); Chol/HDL Ratio 1.52 Ratio; Globulin 1.6 g/dL (1.6-3.3); Glucose 93 mg/dL (70-110); LDL Cholesterol,Calculated 21.9 mg/dL (0.0-131.0); Potassium 4.3 mmol/L (3.5-5.5); Sodium 141 mmol/L (135-145); T4, Free (Free Thyroxine) 1.29 ng/dL (0.80-1.80); Total Bilirubin 1.9 mg/dL (0.3-1.2); Total Protein 5.8 g/dL (6.2-8.2); VLDL Calculation 8.36 mg/dL (5.00-40.00)
== END | disposition home or self-care (01) ==
LOC: LABWHC1 11:39
PROVIDERS: ATTEND Internal Medicine Critical Care Medicine
DX: C61 Malignant neoplasm of prostate (principal); E78.5 Hyperlipidemia, unspecified; N40.0 Benign prostatic hyperplasia without lower urinary tract symptoms; K57.90 Diverticulosis of intestine, part unspecified, without perforation or abscess without bleeding
CPT/HCPCS: 36415; 80053; 80061; 82306; 83036; 84439; 84443; 85025

== ENCOUNTER → 2023-10-25 | Outpatient (CLI) | payer MEDICARE | END | disposition home or self-care (01) | LOC: LABWHC1 13:33 | PROVIDERS: ATTEND Internal Medicine Critical Care Medicine | DX: C61 Malignant neoplasm of prostate (principal) | CPT/HCPCS: 36415; 84153 ==

== ENCOUNTER → 2024-08-22 | Outpatient (CLI) | payer MEDICARE ==
[2024-08-22 15:06] LABS: Influenza A Not Detected (Not Detectd); Influenza B Not Detected (Not Detectd); RSV Not Detected (Not Detectd)
== END | disposition home or self-care (01) ==
LOC: LABWHC1 13:46
PROVIDERS: ATTEND Internal Medicine
DX: Z20.822 Contact with and (suspected) exposure to COVID-19 (principal); M79.10 Myalgia, unspecified site; R05.8 Other specified cough; R09.81 Nasal congestion
CPT/HCPCS: 87636

== ENCOUNTER → 2024-10-28 | Outpatient (CLI) | payer MEDICARE | END | disposition home or self-care (01) | LOC: LABWHC1 12:49 | PROVIDERS: ATTEND Urology | DX: R97.20 Elevated prostate specific antigen [PSA] (principal) | CPT/HCPCS: 36415; 84153 ==